=== PATIENT | female | born 1970 | race African-American/Black ===

== ENCOUNTER 2016-05-30 13:08 | Emergency (ER) ==
--- NOTE | 2016-05-30 14:01 | PROVIDER DOCUMENTATION ---
HPI-Female /OB/Breast - General Chief Complaint: Female Stated Complaint: N/V/D Time Seen by Provider: 05/30/16 14:01 Source: reports: patient Allergies/Adverse Reactions: Patient Allergies Allergy/AdvReac Type Severity Reaction Status Date / Time No Known Allergies Allergy Verified 04/10/16 06:19 Home Medications: Home Medication List Medication Instructions Recorded Confirmed Last Taken Type Lisinopril 40 mg PO DAILY #30 tablet 12/29/15 04/11/16 04/11/16 Rx Amlodipine [Norvasc] 5 mg PO BID #60 tablet 05/05/16 Unknown Rx LISINOpril [Prinivil] 40 mg PO DAILY #60 tablet 05/05/16 Unknown Rx Sucralfate [Carafate] 1 gm PO AC + HS #120 tablet 05/05/16 Unknown Rx Potassium Chloride [K-Tab ER] 20 meq PO DAILY #5 tablet.er 05/30/16 Unknown Rx Promethazine [Phenergan] 25 mg PO Q6H PRN PRN #15 tablet 05/30/16 Unknown Rx Tramadol [Ultram] 50 mg PO Q6H PRN PRN #12 tablet 05/30/16 Unknown Rx - History of Present Illness-Female /OB Nature of Presenting Problem: PATIENT REPORTS PELVIC PAIN, VAGINAL BLEEDING X6 MONTHS. STATES IS SCHEDULED TO SEE DANCE PROFESSOR, DR. AGARWAL NEXT WEEK TO DISCUSS HYSTERECTOMY. STATES SHE HAS KNOWN FIBROIDS. REPORTS EXTREME NAUSEA AND VOMITING. STATES "I'M ALWAYS ANEMIC AND MY POTASSIUM IS ALWAYS LOW. I THINK I JUST NEED SOME FLUIDS AND SOME POTASSIUM". Does patient report she is ?: No Location of complaint: reports: suprapubic Radiation: reports: none Quality of Pain: reports: aching, cramping, sharp Severity in ED: reports: severe Onset/Duration: reports: other (6 MONTHS AGO) Timing: reports: still present, getting worse Vaginal Symptoms: reports: abnormal bleeding Vaginal Bleeding Amount: Large/Heavy Pads/Day: 15 Urinary Symptoms: reports: no symptoms Related Symptoms: reports: no symptoms Modifying Factors: improves with: nothing Associated Symptoms: reports: fatigue, nausea, vomiting Similar Symptoms Previously?: Yes Recently seen or treated by another doctor?: No - LMP/ History Menstrual Status: abnormal period(s) Review of Systems - Adult - REVIEW OF SYSTEMS - ADULT Constitutional: reports: no symptoms reported Eyes: reports: no symptoms reported Ears, Nose, Mouth & Throat: reports: no symptoms reported Cardiovascular: reports: no symptoms reported Respiratory: reports: no symptoms reported Gastrointestinal: reports: see HPI Genitourinary: reports: see HPI Musculoskeletal: reports: no symptoms reported Integumentary: reports: no symptoms reported Neurological: reports: no symptoms reported Psychiatric: reports: no symptoms reported Endocrine: reports: no symptoms reported Hematologic/Lymphatic: reports: see HPI Allergic/Immunologic: reports: no symptoms reported Past History - Adult - PAST MEDICAL HISTORY-ADULT Review of Records: reports: Nursing Assessment Review, Medications Reviewed, Social history reviewed & non-contributory. Major Childhood Illnesses: reports: denies history Cardiovascular: reports: HTN Respiratory: reports: denies history Gastrointestinal: reports: denies history Obstetrical/Gynecological: reports: fibroids (with AUB), other (tubal ligation) Genitourinary: reports: denies history Musculoskeletal: reports: denies history Neurological: reports: Seizures/Epilepsy Endocrine/Immune: reports: denies history Other Conditions: reports: denies history - PRIOR SURGERIES/PROCEDURES Surgical/Procedure History: reports: BTL - IMMUNIZATION STATUS Childhood Immunizations: See Nurse Assessment Flu Vaccine: See Nurse Assessment - FAMILY HISTORY Family History: reviewed, not pertinent Physical Exam-General - PHYSICAL EXAM-ADULT Initial Vital Signs Reviewed: Yes - CONSTITUTIONAL General Appearance: appears well, alert, no apparent distress - EYES Eyes: PERRL/EOMI - HEAD, EARS, NOSE, MOUTH & THROAT HENMT: normocephalic/atraumatic, normal ENT inspection - NECK Neck: full range of motion - RESPIRATORY Respiratory: lungs clear - CARDIOVASCULAR Cardiovascular: regular rate, rhythm - GASTROINTESTINAL (ABDOMEN) Abdominal Exam: normal bowel sounds, soft, tenderness (SUPRAPUBIC TENDERNESS) - MUSCULOSKELETAL Extremity: normal range of motion, normal gait - SKIN Integumentary: normal color, normal turgor, warm/dry - NEUROLOGIC Neurologic: grossly normal - PSYCHIATRIC Psych/Mental Status: normal mood/affect, normal thought content, normal thought process, oriented x 3 Progress - PLAN OF CARE/RESULTS Progress/Plan/Lab Results: 1622--DISCUSSED PATIENT AND REVIEWED LABS WITH DR. BRADLEY. PER DR. BRADLEY, PATIENT DOES NOT MEET ADMIT CRITERIA AT THIS TIME. Laboratory Tests 05/30/16 05/30/16 05/30/16 14:40 15:00 15:00 WBC 11.70 H RBC 4.11 L Hgb 8.2 L Hct 27.0 L MCV 65.7 L MCH 20.0 L MCHC 30.4 L RDW Std Deviation 21.9 H Plt Count 479 H MPV 8.9 Immature Gran % (Auto) 0.3 Neut % (Auto) 83.3 H Lymph % (Auto) 11.4 L [place] % (Auto) 4.2 Eos % (Auto) 0.5 Baso % (Auto) 0.3 Immature Gran # (Auto) 0.03 Neut # (Auto) 9.76 H Lymph # (Auto) 1.33 [place] # (Auto) 0.49 Eos # (Auto) 0.06 Baso # (Auto) 0.03 APTT (Factor Assay) Sodium 141 Potassium 2.9 L Chloride 102 Carbon Dioxide 25 Anion Gap 14 BUN 5 L Creatinine 0.8 Estimated GFR/1.73 m2 > 60 BUN/Creatinine Ratio 6 Glucose 105 H Calculated Osmolality 279 Calcium 9.5 Total Bilirubin 0.20 AST 14 ALT 10 Alkaline Phosphatase 67 Total Protein 8.0 Albumin 4.0 Globulin 4.0 Albumin/Globulin Ratio 1.0 Urine Source CATH Urine Color YELLOW Urine Clarity CLEAR Urine pH 9.0 Ur Specific [place] 1.010 Urine Protein NEGATIVE Urine Ketones TRACE Urine Blood 4+ Urine Nitrite NEGATIVE Urine Bilirubin NEGATIVE Urine Urobilinogen NORMAL Urine Microscopic RBC 10-20 A Urine WBC TRACE A Urine Microscopic WBC <10 Ur Epithelial Cells <10 Urine Glucose NEGATIVE 05/30/16 15:26 WBC RBC Hgb Hct MCV MCH MCHC RDW Std Deviation Plt Count MPV Immature Gran % (Auto) Neut % (Auto) Lymph % (Auto) [place] % (Auto) Eos % (Auto) Baso % (Auto) Immature Gran # (Auto) Neut # (Auto) Lymph # (Auto) [place] # (Auto) Eos # (Auto) Baso # (Auto) APTT (Factor Assay) 30.3 Sodium Potassium Chloride Carbon Dioxide Anion Gap BUN Creatinine Estimated GFR/1.73 m2 BUN/Creatinine Ratio Glucose Calculated Osmolality Calcium Total Bilirubin AST ALT Alkaline Phosphatase Total Protein Albumin Globulin Albumin/Globulin Ratio Urine Source Urine Color Urine Clarity Urine pH Ur Specific [place] Urine Protein Urine Ketones Urine Blood Urine Nitrite Urine Bilirubin Urine Urobilinogen Urine Microscopic RBC Urine WBC Urine Microscopic WBC Ur Epithelial Cells Urine Glucose Orders Category Date Time Status ED: Urine Bedside ORDERED Care 05/30/16 14:08 Active Saline Loc NOW Care 05/30/16 14:08 Active CBC WITH ELECTRONIC DIFF [HEME] Stat Lab 05/30/16 15:00 Completed CMP [COMPREHENSIVE METABOLIC PANEL] [CHEM] Stat Lab 05/30/16 15:[address]IME WITH INR [address] [COAG] Stat Lab 05/30/16 14:[address] [COAG] Stat Lab 05/30/16 15:[address] [URINALYSIS] Stat Lab 05/30/16 14:40 Completed URINE MICROSCOPIC [URINALYSIS] Stat Lab 05/30/16 14:40 Completed 0.9% Sodium Chloride Inj [Ns] 1,000 ml Med 05/30/16 14:10 Discontinued IV 999 mls/hr Morphine Med 05/30/16 16:26 Discontinued 4 mg IV NOW ONE Ondansetron [Zofran] Med 05/30/16 14:10 Discontinued 4 mg IV NOW ONE Potassium Chloride E.r. [Klor-Con] Med 05/30/16 16:23 Discontinued 40 meq PO NOW ONE Promethazine [Phenergan] Med 05/30/16 16:26 Discontinued 25 mg IV NOW ONE Sodium Chloride 0.9% Med 05/30/16 16:26 Discontinued 10 ml INJ NOW ONE Vital Signs - 24 hr 05/30/16 13:18 Temperature 98 F Pulse Rate 116 H Respiratory 18 Rate Blood Pressure 177/99 O2 Sat by Pulse 99 Oximetry Departure - Departure Time of Disposition Order: 16:29 DIAGNOSIS: Vaginal bleeding, abnormal Nausea & vomiting Qualifiers: Vomiting type: unspecified Anemia Qualifiers: Anemia type: other cause Disposition: HOME 01 Certified Medical Emergency: Emergent Condition: Good Prescriptions: Potassium Chloride [K-Tab ER] 20 meq PO DAILY #5 tablet.er Promethazine [Phenergan] 25 mg PO Q6H PRN PRN #15 tablet PRN Reason: Nausea Tramadol [Ultram] 50 mg PO Q6H PRN PRN #12 tablet PRN Reason: Pain Referrals: Austin Agarwal MD [STAFF PHYSICIAN] - (KEEP YOUR APPOINTMENT WITH DR. AGARWAL FOR NEXT WEEK. ) Forms: Return to School/Parent Work Instructions: Citric Acid; Potassium Citrate Oral Solution, Anemia, Nonspecific , Tramadol tablets, Promethazine tablets, Nausea and Vomiting
[2016-05-30] MEDS ORDERED: ZOFRAN IV ONE (14:10)
[2016-05-30] MEDS ORDERED: NS 1,000 ML IV ONE (14:10)
[2016-05-30 15:05] LABS: URINE SOURCE CATH
[2016-05-30 15:20] LABS: MANUAL DIFF NEEDED? NO
[2016-05-30 15:24] LABS: BASO% 0.3 % (0.0-0.8); EOS# 0.06 X1000 (0.0-0.7); EOS% 0.5 % (0.0-10.0); HEMOGLOBIN 8.2 g/dL (12.0-16.0); IMM GRAN# 0.03 X1000 (0.0-0.04); IMM GRAN% 0.3 % (0.0-0.5); LYMPH# 1.33 X1000 (1.2-3.4); LYMPH% 11.4 % (20.5-51.1); MCHC 30.4 g/dL (33-37); MCV 65.7 FL (81-99); MONO# 0.49 X1000 (0.11-0.59); MONO% 4.2 % (1.7-9.3); MPV 8.9 FL (7.4-10.4); NEUT% 83.3 % (42.2-75.2); PLT 479 X1000 (130-400); RBC 4.11 XMIL (4.2-5.4)
[2016-05-30 15:37] LABS: BILIRUBIN URINE NEGATIVE (NEGATIVE); BLOOD URINE 4+ (NEGATIVE); CLARITY CLEAR (CLEAR); COLOR YELLOW; GLUCOSE URINE NEGATIVE (NEGATIVE); LEUKOCYTES URINE TRACE (NEGATIVE); NITRITE URINE NEGATIVE (NEGATIVE); PROTEIN URINE NEGATIVE (NEGATIVE); URINE MICROSCOPIC NEEDED? YES; UROBILINOGEN URINE NORMAL
[2016-05-30 15:41] LABS: URINE EPITHELIAL CELLS <10 /HPF (<10); URINE WBC <10 /HPF (<10)
[2016-05-30 15:56] LABS: AGAP 14; ALKALINE PHOSPHATASE 67 U/L (32-104); BUN 5 mg/dL (8-22); CALCIUM 9.5 mg/dL (8.8-10.2); CHLORIDE 102 mmol/L (98-107); COSMO 279; GOT 14 U/L (10-30); GPT 10 U/L (10-36); POTASSIUM 2.9 mmol/L (3.5-5.1); SODIUM 141 mmol/L (136-145); TCO2 25 mmol/L (25-35)
[2016-05-30] MEDS ORDERED: KLOR-CON PO ONE (16:23)
[2016-05-30] MEDS ORDERED: MORPHINE IV ONE (16:26)
[2016-05-30] MEDS ORDERED: PHENERGAN IV ONE (16:26)
[2016-05-30] MEDS ORDERED: SODIUM CHLORIDE 0.9% INJ ONE (16:26)
[2016-05-30] MEDS ORDERED: PHENERGAN IM ONE (16:39)
[2016-05-30 17:40] VITALS: BP 154/88
== END 2016-05-30 17:34 | disposition home or self-care (01) ==
LOC: P.ED 13:08
DX: D64.9 Anemia, unspecified (principal); N93.9 Abnormal uterine and vaginal bleeding, unspecified; R11.2 Nausea with vomiting, unspecified; R10.2 Pelvic and perineal pain; R53.83 Other fatigue; R10.819 Abdominal tenderness, unspecified site; I10 Essential (primary) hypertension; Z79.899 Other long term (current) drug therapy
CPT/HCPCS: 36415; 80053; 81001; 85025; 85730; J2270; J2405; J2550; J7030

== ENCOUNTER 2016-06-03 08:49 | Emergency (ER) ==
[2016-06-03 10:28] LABS: URINE CULTURE NEEDED? NO; URINE MICRO REVIEW NEEDED? NO; URINE SOURCE CLEAN CATCH
[2016-06-03] MEDS ORDERED: BENTYL IM ONE (10:31)
[2016-06-03] MEDS ORDERED: ZOFRAN IV ONE (10:31)
[2016-06-03] MEDS ORDERED: NS 1,000 ML IV ONE (10:31)
[2016-06-03 10:33] LABS: BILIRUBIN URINE NEGATIVE (NEGATIVE); BLOOD URINE MODERATE (NEGATIVE); COLOR ORANGE; GLUCOSE URINE NEGATIVE (NEGATIVE); LEUKOCYTES URINE NEGATIVE (NEGATIVE); NITRITE URINE NEGATIVE (NEGATIVE); PH URINE 7.5; PROTEIN URINE 30 mg/dL (NEGATIVE); SP GRAVITY URINE 1.007; TURBIDITY URINE HAZY (CLEAR); UROBILINOGEN URINE NORMAL (NORMAL)
[2016-06-03 10:34] LABS: UR EPITHELIAL CELLS <10 /HPF (<10); URINE BACTERIA NEGATIVE /HPF; URINE RBC TNTC /HPF (<10); URINE WBC <10 /HPF (<10)
--- NOTE | 2016-06-03 10:37 | PROVIDER DOCUMENTATION ---
HPI-Abdominal Pain/GI Problem - General Chief Complaint: N/V/D Stated Complaint: N/V/D Time Seen by Provider: 06/03/16 10:30 Allergies/Adverse Reactions: Patient Allergies Allergy/AdvReac Type Severity Reaction Status Date / Time No Known Allergies Allergy Verified 04/10/16 06:19 Home Medications: Home Medication List Medication Instructions Recorded Confirmed Last Taken Type Amlodipine [Norvasc] 5 mg PO BID #60 tablet 05/05/16 06/03/16 06/03/16 Rx Potassium Chloride [K-Tab ER] 20 meq PO DAILY #5 tablet.er 05/30/16 06/03/1602/09 Rx Cephalexin [Keflex] 500 mg PO BID #14 capsule 06/03/16 Unknown Rx - History of Present Illness-ABD Nature of Presenting Problems: A 46 y/o F with PMH of DUB was currently being evalauted by OBGYN for hysterectomy presented to ED with complains of n/v/ and few episodes of non bloody diarrhea since 3-4 days, tried OTC medications with no help, noted supra pubic discomfort and noted increased urinary frequency, denies fevers/marroquin/cp/sob Abdominal Pain Onset Location: reports: suprapubic Pain Radiation: reports: no radiation Quality of Pain: reports: cramping Severity in ED: reports: mild Onset/Duration: reports: 3 days ago Timing: reports: still present Activities at Onset: reports: none Exposure to sick contacts?: No Modifying Factors: improves with: nothing Associated Symptoms: reports: diarrhea, nausea, vomiting Last BM: this morning Dark Stools Present?: reports: none noticed Rectal Bleeding: reports: none Emesis Description: reports: none Bruising or Bleeding Gums?: No Similar Symptoms Previously?: No Recently seen or treated by another doctor?: Yes Review of Systems - Adult - REVIEW OF SYSTEMS - ADULT Constitutional: reports: no symptoms reported Eyes: reports: no symptoms reported Ears, Nose, Mouth & Throat: reports: no symptoms reported Cardiovascular: reports: no symptoms reported Respiratory: reports: no symptoms reported Gastrointestinal: reports: see HPI Genitourinary: reports: no symptoms reported Musculoskeletal: reports: no symptoms reported Integumentary: reports: no symptoms reported Neurological: reports: no symptoms reported Psychiatric: reports: no symptoms reported Endocrine: reports: no symptoms reported Hematologic/Lymphatic: reports: no symptoms reported Allergic/Immunologic: reports: no symptoms reported All Other Systems: Reviewed and Negative Past History - Adult - PAST MEDICAL HISTORY-ADULT Review of Records: reports: Old Records Reviewed, Nursing Assessment Review, Medications Reviewed, Social history reviewed & non-contributory. Major Childhood Illnesses: reports: denies history Cardiovascular: reports: HTN Respiratory: reports: denies history Gastrointestinal: reports: denies history Obstetrical/Gynecological: reports: fibroids (with AUB), other (tubal ligation) Genitourinary: reports: denies history Musculoskeletal: reports: denies history Neurological: reports: Seizures/Epilepsy Endocrine/Immune: reports: denies history Other Conditions: reports: denies history - PRIOR SURGERIES/PROCEDURES Surgical/Procedure History: reports: BTL - IMMUNIZATION STATUS Childhood Immunizations: See Nurse Assessment Flu Vaccine: See Nurse Assessment - FAMILY HISTORY Family History: reviewed, not pertinent Physical Exam-General - PHYSICAL EXAM-ADULT Initial Vital Signs Reviewed: Yes - CONSTITUTIONAL General Appearance: appears well, alert, no apparent distress - EYES Eyes: PERRL/EOMI, pink conjunctivae - HEAD, EARS, NOSE, MOUTH & THROAT HENMT: normocephalic/atraumatic, moist mucous membranes, normal ENT inspection, TMs normal - NECK Neck: non-tender, full range of motion - RESPIRATORY Respiratory: chest non-tender, lungs clear, normal breath sounds, no pleuratic chest pain, no respiratory distress - CARDIOVASCULAR Cardiovascular: normal peripheral pulses, regular rate, rhythm, no edema, no gallop, no JVD, no murmur - GASTROINTESTINAL (ABDOMEN) Abdominal Exam: normal bowel sounds, soft, tenderness (suprqapubic tenderness). negative: distended, guarding, rigid, rebound, hepatomegaly, spleenomegaly, McBurney's point tenderness, Brunson's sign, obturator sign, psoas, Rovsing's sign - GENITOURINARY Female Genitalia/Pelvic Exam: deferred - MUSCULOSKELETAL Back Exam: normal inspection, no CVA tenderness Extremity: normal range of motion, non-tender, normal gait - SKIN Integumentary: normal color, normal turgor - NEUROLOGIC Neurologic: blueprint blocker II-XII nml as tested, grossly normal, no motor/sensory deficits - PSYCHIATRIC Psych/Mental Status: normal mood/affect Progress - PLAN OF CARE/RESULTS Progress/Plan/Lab Results: Laboratory Tests 0306/03/16 06/03/16 10:00 10:00 10:32 WBC RBC Hgb Hct MCV MCH MCHC RDW Std Deviation Plt Count MPV Immature Gran % (Auto) Neut % (Auto) Lymph % (Auto) [place] % (Auto) Eos % (Auto) Baso % (Auto) Immature Gran # (Auto) Neut # (Auto) Lymph # (Auto) [place] # (Auto) Eos # (Auto) Baso # (Auto) Sodium 140 Potassium 2.9 L Chloride 98 Carbon Dioxide 26 Anion Gap 16 BUN 9 Creatinine 0.9 Estimated GFR/1.73 m2 > 60 BUN/Creatinine Ratio 10 Glucose 115 H Calculated Osmolality 279 Calcium 10.1 Total Bilirubin 0.18 L AST 10 ALT 10 Alkaline Phosphatase 67 Total Protein 8.1 Albumin 3.9 Globulin 4.2 Albumin/Globulin Ratio 0.9 Amylase 195 Lipase 54 Urine Source CLEAN CATCH Urine Color ORANGE Urine Turbidity HAZY Urine pH 7.5 Ur Specific [place] 1.007 Urine Protein 30 A Ur Glucose (Stick) NEGATIVE Ur Ketones (Stick) NEGATIVE Urine Blood MODERATE A Urine Nitrite NEGATIVE Urine Bilirubin NEGATIVE Urobilinogen Dipstick NORMAL Urine Leukocytes NEGATIVE Urine WBC (Auto) <10 Urine RBC (Auto) TNTC A U Epithel Cells (Auto) <10 Urine Bacteria (Auto) NEGATIVE Urine Test NEGATIVE 06/03/16 10:32 WBC 12.40 H RBC 4.35 Hgb 8.9 L Hct 28.7 L MCV 66.0 L MCH 20.5 L MCHC 31.0 L RDW Std Deviation 22.6 H Plt Count 507 H MPV 9.6 Immature Gran % (Auto) 0.4 Neut % (Auto) 75.2 Lymph % (Auto) 18.1 L [place] % (Auto) 4.8 Eos % (Auto) 1.0 Baso % (Auto) 0.5 Immature Gran # (Auto) 0.05 H Neut # (Auto) 9.33 H Lymph # (Auto) 2.24 [place] # (Auto) 0.59 Eos # (Auto) 0.13 Baso # (Auto) 0.06 Sodium Potassium Chloride Carbon Dioxide Anion Gap BUN Creatinine Estimated GFR/1.73 m2 BUN/Creatinine Ratio Glucose Calculated Osmolality Calcium Total Bilirubin AST ALT Alkaline Phosphatase Total Protein Albumin Globulin Albumin/Globulin Ratio Amylase Lipase Urine Source Urine Color Urine Turbidity Urine pH Ur Specific [place] Urine Protein Ur Glucose (Stick) Ur Ketones (Stick) Urine Blood Urine Nitrite Urine Bilirubin Urobilinogen Dipstick Urine Leukocytes Urine WBC (Auto) Urine RBC (Auto) U Epithel Cells (Auto) Urine Bacteria (Auto) Urine Test Orders Category Date Time Status ED: Urine Bedside ORDERED Care 06/03/16 10:31 Inactive AMYLASE [CHEM] Stat Lab 06/03/16 10:32 Completed CBC WITH ELECTRONIC DIFF [HEME] Stat Lab 06/03/16 10:32 Completed COMPREHENSIVE METABOLIC PANEL [CHEM] Stat Lab 06/03/16 10:32 Completed LIPASE [CHEM] Stat Lab 06/03/16 10:32 Completed TEST-URINE [PREG] Stat Lab 06/03/16 10:00 Completed URINALYSIS W/POSS RFLX CULT [URINALYSIS] Stat Lab 06/03/16 10:00 Completed 0.9% Sodium Chloride Inj [Ns] 1,000 ml Med 06/03/16 10:31 Discontinued IV 999 mls/hr Dicyclomine [Bentyl] Med 06/03/16 10:31 Discontinued 20 mg IM NOW ONE Ondansetron [Zofran] Med 06/03/16 10:31 Discontinued 4 mg IV NOW ONE Potassium Chloride 20% Liquid Med 06/03/16 11:16 Discontinued 40 meq PO NOW ONE Vital Signs Temp Pulse Resp BP Pulse Ox 06/03/16 08:57 98.2 F 100 H 20 138/93 100 No Known Allergies Allergy (Verified 04/10/16 06:19) Amlodipine [Norvasc] 5 mg PO BID #60 tablet 05/05/16 Potassium Chloride [K-Tab ER] 20 meq PO DAILY #5 tablet.er 05/30/16 Laboratory 06/03/16 06/03/16 06/03/16 10:32 10:32 10:00 WBC 12.40 H RBC 4.35 Hgb 8.9 L Hct 28.7 L MCV 66.0 L MCH 20.5 L MCHC 31.0 L RDW Std Deviation 22.6 H Plt Count 507 H MPV 9.6 Immature Gran % (Auto) 0.4 Neut % (Auto) 75.2 Lymph % (Auto) 18.1 L [place] % (Auto) 4.8 Eos % (Auto) 1.0 Baso % (Auto) 0.5 Immature Gran # (Auto) 0.05 H Neut # (Auto) 9.33 H Lymph # (Auto) 2.24 [place] # (Auto) 0.59 Eos # (Auto) 0.13 Baso # (Auto) 0.06 Sodium 140 Potassium 2.9 L Chloride 98 Carbon Dioxide 26 Anion Gap 16 BUN 9 Creatinine 0.9 Estimated GFR/1.73 m2 > 60 BUN/Creatinine Ratio 10 Glucose 115 H Calculated Osmolality 279 Calcium 10.1 Total Bilirubin 0.18 L AST 10 ALT 10 Alkaline Phosphatase 67 Total Protein 8.1 Albumin 3.9 Globulin 4.2 Albumin/Globulin Ratio 0.9 Amylase 195 Lipase 54 Urine Source Urine Color Urine Turbidity Urine pH Ur Specific [place] Urine Protein Ur Glucose (Stick) Ur Ketones (Stick) Urine Blood Urine Nitrite Urine Bilirubin Urobilinogen Dipstick Urine Leukocytes Urine WBC (Auto) Urine RBC (Auto) U Epithel Cells (Auto) Urine Bacteria (Auto) Urine Test NEGATIVE 06/03/16 10:00 WBC RBC Hgb Hct MCV MCH MCHC RDW Std Deviation Plt Count MPV Immature Gran % (Auto) Neut % (Auto) Lymph % (Auto) [place] % (Auto) Eos % (Auto) Baso % (Auto) Immature Gran # (Auto) Neut # (Auto) Lymph # (Auto) [place] # (Auto) Eos # (Auto) Baso # (Auto) Sodium Potassium Chloride Carbon Dioxide Anion Gap BUN Creatinine Estimated GFR/1.73 m2 BUN/Creatinine Ratio Glucose Calculated Osmolality Calcium Total Bilirubin AST ALT Alkaline Phosphatase Total Protein Albumin Globulin Albumin/Globulin Ratio Amylase Lipase Urine Source CLEAN CATCH Urine Color ORANGE Urine Turbidity HAZY Urine pH 7.5 Ur Specific [place] 1.007 Urine Protein 30 A Ur Glucose (Stick) NEGATIVE Ur Ketones (Stick) NEGATIVE Urine Blood MODERATE A Urine Nitrite NEGATIVE Urine Bilirubin NEGATIVE Urobilinogen Dipstick NORMAL Urine Leukocytes NEGATIVE Urine WBC (Auto) <10 Urine RBC (Auto) TNTC A U Epithel Cells (Auto) <10 Urine Bacteria (Auto) NEGATIVE Urine Test - REASSESSMENT Reassessment #1 Time Reassessed: 12:16 Status: improving Departure - Departure Time of Disposition Order: 12:16 DIAGNOSIS: Hypokalemia, DUB (dysfunctional uterine bleeding), Gastroenteritis Anemia Qualifiers: Anemia type: unspecified type Qualified Code(s): D64.9 - Anemia, unspecified UTI (urinary tract infection) Qualifiers: Urinary tract infection type: site unspecified Hematuria presence: with hematuria Qualified Code(s): N39.0 - Urinary tract infection, site not specified ; R31.9 - Hematuria, unspecified Disposition: HOME 01 Certified Medical Emergency: Emergent Condition: Good Prescriptions: Cephalexin [Keflex] 500 mg PO BID #14 capsule - Critical Care Note Comments: A 46 y/o who presented with multitude of symptoms, has DUB has pending appt with OBGYN for hysterectomy evalaution HB low 8.9 not symptomatic no cardiac history no need of transfusion, hypokalemia given supplement, as per pt always runs low and 2.9 is normal for her, viral gastroenteritis improved after Rx, UTI symptoms will treat with keflex to have close follow up with PCP in 1-2 days , PO hydration
[2016-06-03 10:48] LABS: BASO% 0.5 % (0.0-0.8); EOS# 0.13 X1000 (0.0-0.7); HEMATOCRIT 28.7 % (37.0-47.0); HEMOGLOBIN 8.9 g/dL (12.0-16.0); IMM GRAN# 0.05 X1000 (0.0-0.04); IMM GRAN% 0.4 % (0.0-0.5); LYMPH# 2.24 X1000 (1.2-3.4); LYMPH% 18.1 % (20.5-51.1); MANUAL DIFF NEEDED? NO; MCH 20.5 PG (27-31); MONO# 0.59 X1000 (0.11-0.59); MONO% 4.8 % (1.7-9.3); MPV 9.6 FL (7.4-10.4); NEUT% 75.2 % (42.2-75.2); PLT 507 X1000 (130-400); RBC 4.35 XMIL (4.2-5.4)
[2016-06-03 11:03] LABS: AGAP 16; ALBUMIN 3.9 g/dL (3.5-5.0); ALKALINE PHOSPHATASE 67 U/L (32-104); AMYLASE 195 U/L (20-200); BUN 9 mg/dL (8-22); CALCIUM 10.1 mg/dL (8.8-10.2); CHLORIDE 98 mmol/L (98-107); COSMO 279; GOT 10 U/L (10-30); GPT 10 U/L (10-36); LIPASE 54 U/L (13-60); POTASSIUM 2.9 mmol/L (3.5-5.1); SODIUM 140 mmol/L (136-145); TCO2 26 mmol/L (25-35); TOTAL BILIRUBIN 0.18 mg/dL (0.20-1.00); TOTAL PROTEIN 8.1 g/dL (6.3-8.3)
[2016-06-03] MEDS ORDERED: POTASSIUM CHLORIDE 20% LIQUID PO ONE (11:16)
[2016-06-03 14:08] VITALS: BP 132/89
== END 2016-06-03 14:07 | disposition home or self-care (01) ==
LOC: ED 08:49
DX: K52.9 Noninfective gastroenteritis and colitis, unspecified (principal); N39.0 Urinary tract infection, site not specified; E87.6 Hypokalemia; N93.8 Other specified abnormal uterine and vaginal bleeding; D64.9 Anemia, unspecified; R11.2 Nausea with vomiting, unspecified; R19.7 Diarrhea, unspecified; R10.9 Unspecified abdominal pain; R35.0 Frequency of micturition; R10.819 Abdominal tenderness, unspecified site; I10 Essential (primary) hypertension; Z79.899 Other long term (current) drug therapy
CPT/HCPCS: 36415; 80053; 81001; 81025; 82150; 83690; 85025; 96372; 96374; J0500; J2405; J7030

== ENCOUNTER 2016-06-04 05:10 | Emergency (ER) ==
--- NOTE | 2016-06-04 05:19 | PROVIDER DOCUMENTATION ---
HPI-Abdominal Pain/GI Problem <Skinny Mcknight - Last Filed: 06/04/16 05:19> - History of Present Illness-ABD Nature of Presenting Problems: A 46 y/o F with PMH of DUB was currently being evalauted by OBGYN for hysterectomy presented to ED with complains of n/v/ and few episodes of non bloody diarrhea since 3-4 days, tried OTC medications with no help, noted supra pubic discomfort and noted increased urinary frequency, denies fevers/marroquin/cp/ sob. Pt was seen at [facility] yesterday for exactly these symptoms. Abdominal Pain Onset Location: reports: generalized abdomen Pain Radiation: reports: no radiation Quality of Pain: reports: aching Severity in ED: reports: mild Onset/Duration: reports: 4 days ago Timing: reports: still present Activities at Onset: reports: none Exposure to sick contacts?: No Associated Symptoms: reports: diarrhea, nausea, vomiting Last BM: this morning Dark Stools Present?: reports: none noticed <Soraya Zamudio - Last Filed: 06/04/16 15:34> <Edgar Baird - Last Filed: 06/04/16 15:45> - General Chief Complaint: N/V/D Stated Complaint: V,D,N Time Seen by Provider: 06/04/16 05:18 Allergies/Adverse Reactions: Patient Allergies Allergy/AdvReac Type Severity Reaction Status Date / Time No Known Allergies Allergy Verified 06/04/16 05:23 Home Medications: Home Medication List Medication Instructions Recorded Confirmed Last Taken Type Amlodipine [Norvasc] 5 mg PO BID #60 tablet 05/05/16 06/03/16 06/03/16 Rx Potassium Chloride [K-Tab ER] 20 meq PO DAILY #5 tablet.er 05/30/16 06/03/1602/09 Rx Cephalexin [Keflex] 500 mg PO BID #14 capsule 06/03/16 1 Day Ago Rx Acetaminophen with Codeine 1 each PO Q6H PRN PRN #20 tablet 06/04/16 Unknown Rx [Tylenol with Codeine #3 Tablet] Diphenoxylate/Atropine [Lomotil] 1 each PO 4XDAY PRN PRN #20 tablet 06/04/16 Unknown Rx Ondansetron Odt [Zofran 4 mg Odt] 4 mg PO Q6H PRN PRN #20 tablet 06/04/16 Unknown Rx Potassium Chloride [K-Tab ER] 20 meq PO BID #30 tablet.er 06/04/16 Unknown Rx Promethazine [Phenergan] 1 - 2 tab PO Q6H PRN PRN #18 tablet 06/04/16 Unknown Rx Review of Systems - Adult - REVIEW OF SYSTEMS - ADULT Constitutional: reports: no symptoms reported. denies: chills, fever Eyes: reports: no symptoms reported. denies: blurred vision, double vision Ears, Nose, Mouth & Throat: reports: no symptoms reported. denies: ear discharge, epistaxis Cardiovascular: reports: no symptoms reported. denies: chest pain, heart murmur Respiratory: reports: no symptoms reported. denies: chronic cough, hemoptysis Gastrointestinal: reports: abdominal pain, diarrhea, nausea, vomiting Genitourinary: reports: no symptoms reported. denies: dysuria, hematuria Musculoskeletal: reports: no symptoms reported. denies: bone pain, joint swelling Integumentary: reports: no symptoms reported. denies: hives, mole changes Neurological: reports: no symptoms reported. denies: numbness, paresthesia Psychiatric: reports: no symptoms reported. denies: anxiety, depression Endocrine: reports: no symptoms reported. denies: cold intolerance, heat intolerance Hematologic/Lymphatic: reports: no symptoms reported. denies: blood clots, lymphedema Allergic/Immunologic: reports: no symptoms reported. denies: allergic reactions , food allergy All Other Systems: Reviewed and Negative <Soraya Zamudio - Last Filed: 06/04/16 15:34> Past History - Adult - PAST MEDICAL HISTORY-ADULT Major Childhood Illnesses: reports: denies history Cardiovascular: reports: HTN Respiratory: reports: denies history Gastrointestinal: reports: denies history Obstetrical/Gynecological: reports: fibroids (with AUB), other (tubal ligation) Genitourinary: reports: denies history Musculoskeletal: reports: denies history Neurological: reports: Seizures/Epilepsy Endocrine/Immune: reports: denies history Other Conditions: reports: denies history - PRIOR SURGERIES/PROCEDURES Surgical/Procedure History: reports: BTL - IMMUNIZATION STATUS Childhood Immunizations: See Nurse Assessment Flu Vaccine: See Nurse Assessment - FAMILY HISTORY Family History: reviewed, not pertinent <Skinny Mcknight - Last Filed: 06/04/16 05:19> - PAST MEDICAL HISTORY-ADULT Review of Records: reports: Old Records Reviewed, Nursing Assessment Review, Medications Reviewed - IMMUNIZATION STATUS Childhood Immunizations: See Nurse Assessment Flu Vaccine: See Nurse Assessment <Soraya Zamudio - Last Filed: 06/04/16 15:34> Physical Exam-General - PHYSICAL EXAM-ADULT Initial Vital Signs Reviewed: Yes - CONSTITUTIONAL General Appearance: appears well, alert, no apparent distress - EYES Eyes: PERRL/EOMI, pink conjunctivae - HEAD, EARS, NOSE, MOUTH & THROAT HENMT: normocephalic/atraumatic, moist mucous membranes - NECK Neck: non-tender, full range of motion, supple - RESPIRATORY Respiratory: chest non-tender, lungs clear, normal breath sounds - CARDIOVASCULAR Cardiovascular: normal peripheral pulses, regular rate, rhythm, no edema - GASTROINTESTINAL (ABDOMEN) Abdominal Exam: normal bowel sounds, non tender, soft - GENITOURINARY Female Genitalia/Pelvic Exam: deferred - LYMPHATIC Lymphatic: no adenopathy - MUSCULOSKELETAL Back Exam: normal inspection, no CVA tenderness, no vertebral tenderness Extremity: normal range of motion, non-tender, normal gait - SKIN Integumentary: normal color, normal turgor, warm/dry - NEUROLOGIC Neurologic: grossly normal, no motor/sensory deficits - PSYCHIATRIC Psych/Mental Status: normal mood/affect, normal thought content, normal thought process, oriented x 3 <Soraya Zamudio - Last Filed: 06/04/16 15:34> Progress - PLAN OF CARE/RESULTS Progress/Plan/Lab Results: Vital Signs - 24 hr 06/04/16 06/04/16 06/04/16 05:18 08:13 08:15 Temperature 98.8 F Pulse Rate 109 H Pulse Rate [ Sitting] Pulse Rate [ Standing] Pulse Rate [ Supine] Respiratory 16 Rate Blood Pressure 184/103 212/117 201/115 Blood Pressure [Sitting] Blood Pressure [Standing] Blood Pressure [Supine] O2 Sat by Pulse 98 Oximetry 06/04/16 06/04/16 06/04/16 08:24 08:30 08:45 Temperature Pulse Rate Pulse Rate [ Sitting] Pulse Rate [ Standing] Pulse Rate [ Supine] Respiratory Rate Blood Pressure 210/115 187/103 192/110 Blood Pressure [Sitting] Blood Pressure [Standing] Blood Pressure [Supine] O2 Sat by Pulse Oximetry 06/04/16 06/04/16 06/04/16 08:52 09:00 09:16 Temperature 98.6 F Pulse Rate 101 H Pulse Rate [ 121 H Sitting] Pulse Rate [ 135 H Standing] Pulse Rate [ 116 H Supine] Respiratory 18 Rate Blood Pressure 186/102 191/114 Blood Pressure 222/120 [Sitting] Blood Pressure 196/121 [Standing] Blood Pressure 199/120 [Supine] O2 Sat by Pulse 99 Oximetry 06/04/16 06/04/16 06/04/16 09:23 11:55 12:53 Temperature Pulse Rate 85 73 Pulse Rate [ Sitting] Pulse Rate [ Standing] Pulse Rate [ Supine] Respiratory 19 17 Rate Blood Pressure 163/110 167/106 186/105 Blood Pressure [Sitting] Blood Pressure [Standing] Blood Pressure [Supine] O2 Sat by Pulse 99 98 Oximetry 06/04/16 06/04/16 06/04/16 13:09 13:11 14:31 Temperature Pulse Rate 81 86 Pulse Rate [ Sitting] Pulse Rate [ Standing] Pulse Rate [ Supine] Respiratory 18 Rate Blood Pressure 174/119 180/103 174/106 Blood Pressure [Sitting] Blood Pressure [Standing] Blood Pressure [Supine] O2 Sat by Pulse 99 Oximetry 06/04/16 14:59 Temperature Pulse Rate Pulse Rate [ Sitting] Pulse Rate [ Standing] Pulse Rate [ Supine] Respiratory Rate Blood Pressure 169/087 Blood Pressure [Sitting] Blood Pressure [Standing] Blood Pressure [Supine] O2 Sat by Pulse Oximetry Vital Signs - 24 hr 06/04/16 06/04/16 06/04/16 05:18 08:13 08:15 Temperature 98.8 F Pulse Rate 109 H Pulse Rate [ Sitting] Pulse Rate [ Standing] Pulse Rate [ Supine] Respiratory 16 Rate Blood Pressure 184/103 212/117 201/115 Blood Pressure [Sitting] Blood Pressure [Standing] Blood Pressure [Supine] O2 Sat by Pulse 98 Oximetry 06/04/16 06/04/16 06/04/16 08:24 08:30 08:45 Temperature Pulse Rate Pulse Rate [ Sitting] Pulse Rate [ Standing] Pulse Rate [ Supine] Respiratory Rate Blood Pressure 210/115 187/103 192/110 Blood Pressure [Sitting] Blood Pressure [Standing] Blood Pressure [Supine] O2 Sat by Pulse Oximetry 06/04/16 06/04/16 06/04/16 08:52 09:00 09:16 Temperature 98.6 F Pulse Rate 101 H Pulse Rate [ 121 H Sitting] Pulse Rate [ 135 H Standing] Pulse Rate [ 116 H Supine] Respiratory 18 Rate Blood Pressure 186/102 191/114 Blood Pressure 222/120 [Sitting] Blood Pressure 196/121 [Standing] Blood Pressure 199/120 [Supine] O2 Sat by Pulse 99 Oximetry 06/04/16 06/04/16 06/04/16 09:23 11:55 12:53 Temperature Pulse Rate 85 73 Pulse Rate [ Sitting] Pulse Rate [ Standing] Pulse Rate [ Supine] Respiratory 19 17 Rate Blood Pressure 163/110 167/106 186/105 Blood Pressure [Sitting] Blood Pressure [Standing] Blood Pressure [Supine] O2 Sat by Pulse 99 98 Oximetry 06/04/16 06/04/16 06/04/16 13:09 13:11 14:31 Temperature Pulse Rate 81 86 Pulse Rate [ Sitting] Pulse Rate [ Standing] Pulse Rate [ Supine] Respiratory 18 Rate Blood Pressure 174/119 180/103 174/106 Blood Pressure [Sitting] Blood Pressure [Standing] Blood Pressure [Supine] O2 Sat by Pulse 99 Oximetry 06/04/16 14:59 Temperature Pulse Rate Pulse Rate [ Sitting] Pulse Rate [ Standing] Pulse Rate [ Supine] Respiratory Rate Blood Pressure 169/087 Blood Pressure [Sitting] Blood Pressure [Standing] Blood Pressure [Supine] O2 Sat by Pulse Oximetry Orders Category Date Time Status Saline Loc DIRECTED Care 06/04/16 05:19 Active NPO Diet 06/04/16 05:[address] ABD/PELVIS W/ IV CONT ONLY [CT] Stat Exams 06/04/16 05:24 Completed AMYLASE [CHEM] Stat Lab 06/04/16 05:40 Completed CBC WITH ELECTRONIC DIFF [HEME] Stat Lab 06/04/16 05:40 Completed CMP [COMPREHENSIVE METABOLIC PANEL] [CHEM] Stat Lab 06/04/16 13:20 Completed COMPREHENSIVE METABOLIC PANEL [CHEM] Stat Lab 06/04/16 05:40 Completed LIPASE [CHEM] Stat Lab 06/04/16 05:40 Completed MAGNESIUM [CHEM] Stat Lab 06/04/16 13:[address] W/POSS RFLX CULT [URINALYSIS] Stat Lab 06/04/16 06:55 Completed 0.9% Sodium Chloride Inj [Ns] 1,000 ml Med 06/04/16 05:32 Discontinued .ROUTE As Directed 0.9% Sodium Chloride Inj [Ns] 1,000 ml Med 06/04/16 05:34 Discontinued IV 999 mls/hr 0.9% Sodium Chloride Inj [Ns] 1,000 ml Med 06/04/16 07:31 Discontinued IV 999 mls/hr Amlodipine [Norvasc] Med 06/04/16 14:33 Discontinued 10 mg PO NOW ONE Clonidine [Catapres] Med 06/04/16 09:28 Discontinued 0.2 mg .ROUTE .STK-MED ONE Clonidine [Catapres] Med 06/04/16 09:29 Discontinued 0.2 mg PO NOW ONE Labetalol Med 06/04/16 10:40 Discontinued 20 mg IV NOW ONE Labetalol Med 06/04/16 11:41 Discontinued 20 mg IV NOW ONE Labetalol Med 06/04/16 12:55 Discontinued 20 mg IV NOW ONE Labetalol Med 06/04/16 14:33 Discontinued 20 mg IV NOW ONE Ondansetron [Zofran] Med 06/04/16 10:50 Discontinued 4 mg .ROUTE .STK-MED ONE Ondansetron [Zofran] Med 06/04/16 07:33 Discontinued 4 mg IV NOW ONE Ondansetron [Zofran] Med 06/04/16 10:50 Discontinued 4 mg IV NOW ONE Potassium Chloride E.r. [Klor-Con] Med 06/04/16 07:32 Discontinued 20 meq PO NOW ONE Potassium Chloride E.r. [Klor-Con] Med 06/04/16 11:41 Discontinued 20 meq PO NOW ONE Potassium Chloride E.r. [Klor-Con] Med 06/04/16 09:29 Discontinued 40 meq PO NOW ONE Promethazine [Phenergan] Med 06/04/16 06:25 Discontinued 25 mg .ROUTE .STK-MED ONE Promethazine [Phenergan] Med 06/04/16 06:24 Discontinued 25 mg IV NOW ONE Laboratory Tests 06/04/16 06/04/16 06/04/16 05:40 05:40 06:55 WBC 14.53 H RBC 4.36 Hgb 8.8 L Hct 28.3 L MCV 64.9 L MCH 20.2 L MCHC 31.1 L RDW Std Deviation 22.8 H Plt Count 502 H MPV 9.2 Immature Gran % (Auto) 0.2 Neut % (Auto) 86.6 H Lymph % (Auto) 9.6 L [place] % (Auto) 3.4 Eos % (Auto) 0.0 Baso % (Auto) 0.2 Immature Gran # (Auto) 0.03 Neut # (Auto) 12.59 H Lymph # (Auto) 1.39 [place] # (Auto) 0.49 Eos # (Auto) 0.00 Baso # (Auto) 0.03 Segmented Neutrophils Not Reportable Sodium 139 Potassium 2.7 L Chloride 96 L Carbon Dioxide 25 Anion Gap 18 BUN 8 Creatinine 0.7 Estimated GFR/1.73 m2 > 60 BUN/Creatinine Ratio 11 Glucose 172 H Calculated Osmolality 280 Calcium 10.2 Magnesium Total Bilirubin 0.30 AST 15 ALT 12 Alkaline Phosphatase 72 Total Protein 9.1 H Albumin 4.7 Globulin 4.0 Albumin/Globulin Ratio 1.0 Amylase 206 H Lipase 16 Urine Source CLEAN CATCH Urine Color YELLOW Urine Clarity CLEAR Urine pH 9.0 Ur Specific [place] 1.010 Urine Protein NEGATIVE Urine Ketones NEGATIVE Urine Blood 4+ Urine Nitrite NEGATIVE Urine Bilirubin NEGATIVE Urine Urobilinogen NORMAL Urine Microscopic RBC 20-40 A Urine WBC NEGATIVE Urine Microscopic WBC <10 Ur Epithelial Cells <10 Urine Bacteria NEGATIVE Urine Glucose NEGATIVE 06/04/16 06/04/16 13:20 13:20 WBC RBC Hgb Hct MCV MCH MCHC RDW Std Deviation Plt Count MPV Immature Gran % (Auto) Neut % (Auto) Lymph % (Auto) [place] % (Auto) Eos % (Auto) Baso % (Auto) Immature Gran # (Auto) Neut # (Auto) Lymph # (Auto) [place] # (Auto) Eos # (Auto) Baso # (Auto) Segmented Neutrophils Sodium 142 Potassium 2.7 L Chloride 99 Carbon Dioxide 25 Anion Gap 18 BUN 6 L Creatinine 0.7 Estimated GFR/1.73 m2 > 60 BUN/Creatinine Ratio 9 Glucose 150 H Calculated Osmolality 284 Calcium 9.8 Magnesium 1.8 Total Bilirubin 0.30 AST 15 ALT 12 Alkaline Phosphatase 74 Total Protein 9.3 H Albumin 4.7 Globulin 5.0 Albumin/Globulin Ratio 1.0 Amylase Lipase Urine Source Urine Color Urine Clarity Urine pH Ur Specific [place] Urine Protein Urine Ketones Urine Blood Urine Nitrite Urine Bilirubin Urine Urobilinogen Urine Microscopic RBC Urine WBC Urine Microscopic WBC Ur Epithelial Cells Urine Bacteria Urine Glucose - CT/MRI 1 CT Study: Abdomen, Pelvis Impression: Abnormal (1. mild fatty inflitration of the liver. 2. tiny right renal cyst. 3. no bowel obstruction. no abscess. 4. prominent uterus with several degenerating fibroids.) - CHANGE OF SHIFT REPORT (ED Provider) Time of Transfer: 06:00 <Soraya Zamudio - Last Filed: 06/04/16 15:34> Departure <Skinny Mcknight - Last Filed: 06/04/16 05:19> <Soraya Zamudio - Last Filed: 06/04/16 15:34> - Departure Time of Disposition Order: 15:43 Certified Medical Emergency: Emergent <Edgar Baird - Last Filed: 06/04/16 15:45> - Departure DIAGNOSIS: Gastroenteritis and colitis, viral, Fibroids, intramural Disposition: HOME 01 Condition: Stable Prescriptions: Acetaminophen with Codeine [Tylenol with Codeine #3 Tablet] 1 each PO Q6H PRN PRN #20 tablet PRN Reason: Pain Diphenoxylate/Atropine [Lomotil] 1 each PO 4XDAY PRN PRN #20 tablet PRN Reason: Diarrhea Promethazine [Phenergan] 1 - 2 tab PO Q6H PRN PRN #18 tablet PRN Reason: Vomiting Ondansetron Odt [Zofran 4 mg Odt] 4 mg PO Q6H PRN PRN #20 tablet PRN Reason: Nausea Potassium Chloride [K-Tab ER] 20 meq PO BID #30 tablet.er Referrals: Alethea Chacon MD [STAFF PHYSICIAN] - Radha Mcknight MD [Primary Care Provider] - Forms: Return to School/Parent Work Instructions: Ondansetron tablets, Promethazine tablets, Nausea and Vomiting Attestation - Scribe Verification/Attestation Scribe:: Soraya Zamudio Acting as Scribe for:: Edgar Baird Scribe documention review:: This chart was documented by a scribe and accurately reflects the service the provider performed and the decisions made by the provider. <Soraya Zamudio - Last Filed: 06/04/16 15:34> Physician Attestation
[2016-06-04] MEDS ORDERED: NS 1,000 ML ONE (05:32)
[2016-06-04] MEDS ORDERED: NS 1,000 ML IV ONE ×2 (05:34→07:31)
[2016-06-04 06:14] LABS: AGAP 18; ALBUMIN 4.7 g/dL (3.5-5.0); ALKALINE PHOSPHATASE 72 U/L (32-104); AMYLASE 206 U/L (20-200); BUN 8 mg/dL (8-22); CALCIUM 10.2 mg/dL (8.8-10.2); CHLORIDE 96 mmol/L (98-107); COSMO 280; GOT 15 U/L (10-30); GPT 12 U/L (10-36); LIPASE 16 U/L (13-60); POTASSIUM 2.7 mmol/L (3.5-5.1); SODIUM 139 mmol/L (136-145); TCO2 25 mmol/L (25-35); TOTAL PROTEIN 9.1 g/dL (6.3-8.3)
[2016-06-04] MEDS ORDERED: PHENERGAN IV ONE (06:24)
[2016-06-04] MEDS ORDERED: PHENERGAN ONE (06:25)
[2016-06-04 06:38] LABS: BASO% 0.2 % (0.0-0.8); HEMATOCRIT 28.3 % (37.0-47.0); HEMOGLOBIN 8.8 g/dL (12.0-16.0); IMM GRAN# 0.03 X1000 (0.0-0.04); IMM GRAN% 0.2 % (0.0-0.5); LYMPH# 1.39 X1000 (1.2-3.4); LYMPH% 9.6 % (20.5-51.1); MCH 20.2 PG (27-31); MCHC 31.1 g/dL (33-37); MCV 64.9 FL (81-99); MONO# 0.49 X1000 (0.11-0.59); MONO% 3.4 % (1.7-9.3); MPV 9.2 FL (7.4-10.4); NEUT% 86.6 % (42.2-75.2); PLT 502 X1000 (130-400); RBC 4.36 XMIL (4.2-5.4)
[2016-06-04 06:40] LABS: MANUAL DIFF NEEDED? NO
[2016-06-04 07:07] LABS: URINE CULTURE PL NEEDED? NO; URINE SOURCE CLEAN CATCH
[2016-06-04 07:27] LABS: BILIRUBIN URINE NEGATIVE (NEGATIVE); BLOOD URINE 4+ (NEGATIVE); CLARITY CLEAR (CLEAR); COLOR YELLOW; GLUCOSE URINE NEGATIVE (NEGATIVE); LEUKOCYTES URINE NEGATIVE (NEGATIVE); NITRITE URINE NEGATIVE (NEGATIVE); PROTEIN URINE NEGATIVE (NEGATIVE); UROBILINOGEN URINE NORMAL
[2016-06-04 07:28] LABS: URINE EPITHELIAL CELLS <10 /HPF (<10); URINE RBC 20-40 /HPF (<10); URINE WBC <10 /HPF (<10)
[2016-06-04] MEDS ORDERED: KLOR-CON PO ONE ×3 (07:32→11:41)
[2016-06-04] MEDS ORDERED: ZOFRAN IV ONE ×2 (07:33→10:50)
--- NOTE | 2016-06-04 08:01 | Diag Imaging Result Document ---
PROCEDURE NAME: CT ABD/PELVIS W/ IV CONT ONLY - 06/04/2016 CT ABDOMEN AND PELVIS WITH INTRAVENOUS CONTRAST: FINDINGS: There is mild fatty infiltration of the liver. Normal spleen, pancreas, gallbladder, and adrenal glands. There is a tiny right renal cyst. No solid renal masses. No hydronephrosis. Normal aorta. No bowel obstruction. No inflammation about the cecum. No abscess. No free air. The urinary bladder is moderately distended and appears normal. The uterus is prominent and appears to contain several degenerating fibroids. Along the right side of the uterus is either a prominent fibroid measuring 4.6 cm or this is the right ovary. IMPRESSION: 1. Mild fatty infiltration of the liver. 2. Tiny right renal cyst. 3. No bowel obstruction. No abscess. 4. Prominent uterus with several degenerating fibroids. A preliminary report was given at 6:51 a.m.
[2016-06-04] MEDS ORDERED: CATAPRES ONE (09:28)
[2016-06-04] MEDS ORDERED: CATAPRES PO ONE (09:29)
[2016-06-04] MEDS ORDERED: LABETALOL IV ONE ×4 (10:40→14:33)
[2016-06-04] MEDS ORDERED: ZOFRAN ONE (10:50)
[2016-06-04 13:44] LABS: AGAP 18; ALBUMIN 4.7 g/dL (3.5-5.0); ALKALINE PHOSPHATASE 74 U/L (32-104); BUN 6 mg/dL (8-22); CALCIUM 9.8 mg/dL (8.8-10.2); CHLORIDE 99 mmol/L (98-107); COSMO 284; GOT 15 U/L (10-30); GPT 12 U/L (10-36); POTASSIUM 2.7 mmol/L (3.5-5.1); SODIUM 142 mmol/L (136-145); TCO2 25 mmol/L (25-35); TOTAL PROTEIN 9.3 g/dL (6.3-8.3)
[2016-06-04] MEDS ORDERED: NORVASC PO ONE (14:33)
[2016-06-04 16:40] VITALS: BP 146/097
== END 2016-06-04 16:41 | disposition home or self-care (01) ==
LOC: P.ED 05:10
DX: K52.9 Noninfective gastroenteritis and colitis, unspecified (principal); D25.1 Intramural leiomyoma of uterus; K76.0 Fatty (change of) liver, not elsewhere classified; N28.1 Cyst of kidney, acquired; R11.2 Nausea with vomiting, unspecified; R19.7 Diarrhea, unspecified; R35.0 Frequency of micturition; R10.84 Generalized abdominal pain; I10 Essential (primary) hypertension; Z79.899 Other long term (current) drug therapy
CPT/HCPCS: 74177; 80053; 81001; 82150; 83690; 83735; 85025; 96361; 96374; 96375; 96376; J2405; J2550; J7030; Q9967

== ENCOUNTER 2016-06-28 05:25 | Inpatient (IN) ==
[2016-06-26 11:09] LABS: MANUAL DIFF NEEDED? NO; URINE SOURCE VOIDED
[2016-06-26 11:53] LABS: BASO% 0.5 % (0.0-0.8); EOS# 0.24 X1000 (0.0-0.7); EOS% 2.9 % (0.0-10.0); HEMATOCRIT 28.6 % (37.0-47.0); HEMOGLOBIN 8.9 g/dL (12.0-16.0); IMM GRAN# 0.01 X1000 (0.0-0.04); IMM GRAN% 0.1 % (0.0-0.5); LYMPH# 2.85 X1000 (1.2-3.4); LYMPH% 34.1 % (20.5-51.1); MCH 20.1 PG (27-31); MCHC 31.1 g/dL (33-37); MCV 64.7 FL (81-99); MONO# 0.59 X1000 (0.11-0.59); NEUT% 55.4 % (42.2-75.2); PLT 281 X1000 (130-400); RBC 4.42 XMIL (4.2-5.4)
[2016-06-26 12:39] LABS: BILIRUBIN URINE NEGATIVE (NEGATIVE); BLOOD URINE TRACE (NEGATIVE); CLARITY CLEAR (CLEAR); COLOR YELLOW; GLUCOSE URINE NEGATIVE (NEGATIVE); LEUKOCYTES URINE TRACE (NEGATIVE); NITRITE URINE NEGATIVE (NEGATIVE); PROTEIN URINE TRACE mg/dL (NEGATIVE); SP GRAVITY URINE 1.015; URINE MICROSCOPIC NEEDED? YES; UROBILINOGEN URINE 1+(1 mg/dL)
[2016-06-26 12:40] LABS: URINE EPITHELIAL CELLS >10 /HPF (<10); URINE RBC <10 /HPF (<10)
--- NOTE | 2016-06-27 15:46 | CONSULTATION ---
PREOPERATIVE DIAGNOSES: 1. Uterine fibroids. 2. Pelvic pain. PLANNED PROCEDURE: Abdominal hysterectomy with bilateral salpingectomy. Possible bilateral oophorectomy. CONDITION: Stable. HISTORY OF PRESENT ILLNESS: Ms Hammonds is a 46-year-old, 2, para 2, who has experienced pelvic pain. Ultrasound revealed enlarged uterus with multiple fibroids, normal-appearing ovaries, and normal endometrial stripe. She desires definitive treatment with a hysterectomy. PAST MEDICAL HISTORY: Hypertension. PAST SURGICAL HISTORY: Tubal ligation, two previous vaginal deliveries. ALLERGIES: No known drug allergies. MEDICATIONS: Norvasc, potassium supplementation. FAMILY HISTORY: Noncontributory. SOCIAL HISTORY: Tobacco use positive. She is an every day smoker. PHYSICAL EXAMINATION: VITAL SIGNS: She is 5 feet 2 inches, 173 pounds. Blood pressure 152/84. GENERAL: She is alert and cooperative, no distress. NECK: Supple. LUNGS: Clear. HEART: Regular sinus rhythm. ABDOMEN: Soft. She has a mass extending up to midway between the umbilicus and the pubic bone. PELVIC: Deferred. EXTREMITIES: No cyanosis, clubbing, or edema in her extremities. ASSESSMENT: As above. 1. Uterine fibroids. 2. Pelvic pain. 3. Hypertension. 4. Tobacco use. PLAN: Hysterectomy, bilateral salpingectomy, possible oophorectomy. cc: Austin Middleton MD
[2016-06-28] MEDS ORDERED: LR 1,000 ML IV SCH (05:38)
[2016-06-28] MEDS ORDERED: FENTANYL ONE (06:14)
[2016-06-28] MEDS ORDERED: EPHEDRINE ONE (06:15)
[2016-06-28] MEDS ORDERED: DIPRIVAN 1% ONE ×2 (06:16→09:24)
[2016-06-28] MEDS ORDERED: VERSED ONE (06:18)
[2016-06-28] MEDS ORDERED: LR 1,000 ML ONE ×3 (06:58→09:01)
[2016-06-28] MEDS ORDERED: REGLAN ONE (07:04)
[2016-06-28] MEDS ORDERED: KEFZOL 1 GM/D5W 1 GM/50 ML IVPB ONE (07:04)
[2016-06-28] MEDS ORDERED: PEPCID ONE (07:04)
--- NOTE | 2016-06-28 07:43 | EKG Report ---
Test Performed on : 06/28/2016 07:30:12 AM Test Reason : post op Blood Pressure : / mmHG Vent. Rate : 073 BPM Atrial Rate : 073 BPM P-R Int : 146 ms QRS Dur : 074 ms QT Int : 436 ms P-R-T Axes : 036 023 026 degrees QTc Int : 480 ms Normal sinus rhythm. Nonspecific T wave abnormality Prolonged QT Abnormal ECG When compared with ECG of 11-APR-2016 10:30, Vent. rate has decreased BY 46 BPM Nonspecific T wave abnormality now evident in Inferior leads Nonspecific T wave abnormality now evident in Lateral leads Unconfirmed Result
[2016-06-28 07:49] LABS: BASO% 0.4 % (0.0-0.8); EOS# 0.37 X1000 (0.0-0.7); EOS% 3.1 % (0.0-10.0); HEMATOCRIT 24.6 % (37.0-47.0); HEMOGLOBIN 7.3 g/dL (12.0-16.0); IMM GRAN# 0.04 X1000 (0.0-0.04); IMM GRAN% 0.3 % (0.0-0.5); LYMPH# 4.85 X1000 (1.2-3.4); LYMPH% 41.3 % (20.5-51.1); MANUAL DIFF NEEDED? YES; MCH 19.5 PG (27-31); MCHC 29.7 g/dL (33-37); MCV 65.8 FL (81-99); MONO% 6.8 % (1.7-9.3); MPV 9.8 FL (7.4-10.4); NEUT% 48.1 % (42.2-75.2); PLT 485 X1000 (130-400); RBC 3.74 XMIL (4.2-5.4)
[2016-06-28] MEDS ORDERED: NS 500 ML ONE (07:50)
[2016-06-28 07:59] LABS: AGAP 13; BUN 10 mg/dL (8-22); CALCIUM 8.5 mg/dL (8.8-10.2); CHLORIDE 102 mmol/L (98-107); CK PROFILE 82 U/L (24-173); COSMO 283; POTASSIUM 3.1 mmol/L (3.5-5.1); SODIUM 140 mmol/L (136-145); TCO2 25 mmol/L (25-35)
[2016-06-28 08:28] LABS: LYMPHS 43 % (21-51); MONO 4 % (1-9)
[2016-06-28 08:29] LABS: EOS 2 % (1-10)
[2016-06-28] MEDS ORDERED: SODIUM CHLORIDE 0.9% ONE (08:48)
--- NOTE | 2016-06-28 09:04 | Diag Imaging Result Document ---
PROCEDURE NAME: CHEST-PORTABLE - 06/28/2016 AP PORTABLE CHEST, 06/28/2016 AT 0901 HOURS: FINDINGS: There is an endotracheal tube with its tip just above the efrain. There is ill-defined opacity in the left lower lobe which was not present on 05/03/2016. There is also some apparent atelectasis in the inferior right upper lobe which was not present previously. IMPRESSION: Atelectasis and/or pneumonia particularly with respect to the left lower lobe.
[2016-06-28 09:21] LABS: BE 6.2 mmoll (-3.0-3.0); BLOOD TYPE ARTERIAL; METHB 1.4 % (0.0-1.5); O2(CT) 12.7 mL/dL (15.0-23.0); PCO2(98.6) 35 mmHg (35-45); PO2(98.6) 218 mmHg (60-100); SAMPLE BLOOD; SAO2 99.6 % (95.0-100.0); SRATE 12 BPM; THB 9.1 g/dL (11.5-17.4); TVOL 600 mL; pH(98.6) 7.53 (7.35-7.45)
[2016-06-28 09:50] LABS: MODALITY VENTILATOR
[2016-06-28 09:51] LABS: ALLEN TEST NO; DRAW SITE OTHER
[2016-06-28] MEDS ORDERED: APRESOLINE IV ONE (10:39)
[2016-06-28 10:48] LABS: UR AMPHETAMINES QUAL NONE DETECTED (NONE DETECT); UR BARBITUATES QUAL NONE DETECTED (NONE DETECT); UR BENZODIAZEPIN QUAL NONE DETECTED (NONE DETECT); UR CANNABINOIDS QUAL PRESUMPTIVE POSITIVE (NONE DETECT); UR COCAINE QUAL NONE DETECTED (NONE DETECT); UR MDMA QUAL NONE DETECTED (NONE DETECT); UR METHADONE QUAL NONE DETECTED (NONE DETECT); UR METHAMPHETAMINE QUAL NONE DETECTED (NONE DETECT); UR OPIATES QUAL NONE DETECTED (NONE DETECT); UR OXYCODONE QUAL NONE DETECTED (NONE DETECT); UR PCP QUAL NONE DETECTED (NONE DETECT); UR TCA QUAL NONE DETECTED (NONE DETECT)
[2016-06-28] MEDS ORDERED: ZOFRAN IV PRN ×2 (10:50→10:57)
[2016-06-28] MEDS: NS 1,000 ML IV SCH ×2 (10:50→20:33)
[2016-06-28] MEDS ORDERED: DUONEB (A & A) INH PRN (10:57)
[2016-06-28] MEDS ORDERED: SODIUM CHLORIDE 0.9% INJ SCH (11:00)
[2016-06-28] MEDS ORDERED: HUMALOG DOSE (PARKWAY) SUBQ SCH (11:00)
--- NOTE | 2016-06-28 11:03 | Diag Imaging Result Document ---
PROCEDURE NAME: CHEST-PORTABLE - 06/28/2016 AP PORTABLE CHEST: TIME: 1033 hours. FINDINGS: The endotracheal tube remains with the tip slightly below the thoracic inlet. There is a right internal jugular catheter, the tip of which may still be within the internal jugular. There is no evidence of pneumothorax or pleural fluid collection. The left lower lobe is clear, unlike the previous study of 0901 hours. IMPRESSION: No evidence of acute disease.
[2016-06-28 11:04] LABS: HEMOGLOBIN A1C 5.5 % (4.8-6.0)
[2016-06-28] MEDS ORDERED: APRESOLINE IV PRN (11:05)
[2016-06-28 11:10] LABS: AGAP 13; ALBUMIN 3.6 g/dL (3.5-5.0); ALKALINE PHOSPHATASE 84 U/L (32-104); BUN 9 mg/dL (8-22); CALCIUM 9.1 mg/dL (8.8-10.2); CHLORIDE 105 mmol/L (98-107); CK PROFILE 94 U/L (24-173); COSMO 288; GOT 24 U/L (10-30); GPT 13 U/L (10-36); POTASSIUM 3.3 mmol/L (3.5-5.1); SODIUM 144 mmol/L (136-145); TCO2 27 mmol/L (25-35); TOTAL BILIRUBIN < 0.15 mg/dL (0.20-1.00); TOTAL PROTEIN 7.7 g/dL (6.3-8.3)
[2016-06-28] MEDS ORDERED: VANCOMYCIN IV PER PHARMACY MISC SCH (11:15)
[2016-06-28 11:24] LABS: BASO% 0.2 % (0.0-0.8); EOS# 0.04 X1000 (0.0-0.7); EOS% 0.2 % (0.0-10.0); HEMATOCRIT 27.4 % (37.0-47.0); HEMOGLOBIN 8.3 g/dL (12.0-16.0); IMM GRAN# 0.02 X1000 (0.0-0.04); IMM GRAN% 0.1 % (0.0-0.5); LYMPH# 1.01 X1000 (1.2-3.4); LYMPH% 6.3 % (20.5-51.1); MANUAL DIFF NEEDED? YES; MCH 19.6 PG (27-31); MCHC 30.3 g/dL (33-37); MCV 64.8 FL (81-99); MONO# 0.13 X1000 (0.11-0.59); MONO% 0.8 % (1.7-9.3); MPV 9.6 FL (7.4-10.4); NEUT% 92.4 % (42.2-75.2); PLT 499 X1000 (130-400); RBC 4.23 XMIL (4.2-5.4)
[2016-06-28] MEDS ORDERED: DUONEB (A & A) INH SCH (11:30)
[2016-06-28] MEDS: AZACTAM 1 GM in NS 50 ML IV SCH ×2 (13:07→19:55)
[2016-06-28] MEDS: PROTONIX IV SCH ×2 (13:07→22:36)
[2016-06-28 13:24] LABS: LYMPHS 12 % (21-51); MONO 1 % (1-9)
[2016-06-28] MEDS ORDERED: VANCOMYCIN 1,400 MG in NS 250 ML IV ONE (14:00)
[2016-06-28] MEDS ORDERED: ATROPINE SYRINGE ONE (15:58)
[2016-06-28] MEDS ORDERED: KLOR-CON PO ONE (16:15)
[2016-06-28] MEDS: DUONEB (A & A) INH SCH ×2 (16:28→21:45)
[2016-06-29] MEDS: DUONEB (A & A) INH SCH ×5 (00:45→22:17)
[2016-06-29] MEDS: VANCOMYCIN 1,200 MG in NS 250 ML IV SCH ×2 (01:28→19:09)
[2016-06-29] MEDS: AZACTAM 1 GM in NS 50 ML IV SCH ×2 (03:31→16:41)
[2016-06-29] MEDS: NS 1,000 ML IV SCH ×2 (05:57→16:41)
[2016-06-29 06:24] LABS: HEMATOCRIT 23.5 % (37.0-47.0); HEMOGLOBIN 6.9 g/dL (12.0-16.0); MCH 19.2 PG (27-31); MCHC 29.4 g/dL (33-37); MCV 65.3 FL (81-99); MPV 9.7 FL (7.4-10.4); RBC 3.6 XMIL (4.2-5.4)
[2016-06-29 06:50] LABS: AGAP 11; ALBUMIN 3.1 g/dL (3.5-5.0); ALKALINE PHOSPHATASE 66 U/L (32-104); BUN 7 mg/dL (8-22); CALCIUM 8.6 mg/dL (8.8-10.2); CHLORIDE 102 mmol/L (98-107); COSMO 274; GOT 14 U/L (10-30); GPT 9 U/L (10-36); MAGNESIUM 1.9 mg/dL (1.5-2.7); POTASSIUM 2.8 mmol/L (3.5-5.1); SODIUM 138 mmol/L (136-145); TCO2 26 mmol/L (25-35); TOTAL BILIRUBIN < 0.15 mg/dL (0.20-1.00); TOTAL PROTEIN 6.5 g/dL (6.3-8.3)
--- NOTE | 2016-06-29 07:35 | Diag Imaging Result Document ---
PROCEDURE NAME: HEAD W/O CONTRAST - 06/28/2016 CT OF THE HEAD WITHOUT CONTRAST: FINDINGS: There is some patient motion. There is no evidence of mass effect, bleed, or abnormal extra-axial fluid collection intracranially. There is mild mucosal thickening in some of the ethmoid air cells. The mastoids and middle ear cavities are well pneumatized. There appears to be some mucosal thickening in the posterior nares and nasopharynx which is incompletely imaged on this study. IMPRESSION: No evidence of acute intracranial disease. Nasopharyngeal mucosal thickening.
[2016-06-29] MEDS: POTASSIUM CHLORIDE 20 MEQ/SWI 20 MEQ/100 ML IVPB IV SCH ×4 (09:42→22:00)
--- NOTE | 2016-06-29 10:00 | HISTORY AND PHYSICAL ---
CHIEF COMPLAINT: Anaphylactic shock. HISTORY OF PRESENT ILLNESS: This is a 46-year-old female with a history of uterine fibroids, heavy periods, and anemia from blood loss. She was admitted after having presumed anaphylaxis to Ancef. The patient was being prepared for an abdominal hysterectomy. She was in the operating room, given Ancef and shortly after, she became unresponsive. She required intubation. Reportedly she had facial edema. She was ultimately transferred to ICU and hospitalists were asked to assume medical care of the patient. PAST MEDICAL HISTORY: Uterine fibroids, hypertension, gastroparesis with an emptying time half life of 153 minutes in March 2016, tobacco abuse, cyclical nausea and emesis syndrome, anemia secondary to blood loss. PAST SURGICAL HISTORY: Bilateral tubal ligation. SOCIAL HISTORY: She lives with family members. She smokes about a half pack a day. She has for 15 years. She denies alcohol use. She does report marijuana use. ALLERGIES: Presumed Ancef. HOME MEDICATIONS: Amlodipine 10 mg daily, potassium 20 mEq b.i.d.. REVIEW OF SYSTEMS: Unable to obtain due to the patient's status. PHYSICAL EXAMINATION: GENERAL: This is a 46-year-old female who is lying in the bed, intubated, continues. VITAL SIGNS: Blood pressure is running in the 200s over 100 to 120's per ART line. This is consistent with cuff. Heart rate is 98, respirations are per ventilator, her oxygen saturations are 100%. HEENT: Head is normocephalic, atraumatic. Pupils are equal, round and reactive to light. Sclerae are anicteric. Mucous membranes are dry. NECK: Supple. Trachea is midline. She is intubated. CARDIOVASCULAR: Regular rate and rhythm. S1, S2 appreciated. PULMONARY: Breath sounds are clear. Chest rises and falls symmetrically with ventilator assisted respirations. GASTROINTESTINAL: Soft, nontender, nondistended, with bowel sounds in all four quadrants. NEUROLOGICAL: She continues to be sedated and she is intubated. ASSESSMENT: 1. Presumed anaphylaxis most likely secondary to Ancef. 2. Hypertension. 3. Anemia secondary to blood loss. 4. Dysfunctional uterine bleeding secondary to uterine fibroids. 5. Left lower lobe pneumonia. PLAN: The patient will continue in ICU. We will continue monitoring. During the exam she was extubated per Dr. Mcknight, Anesthesia. She was placed on 2 L nasal cannula. We will continue to monitor. We will obtain blood cultures, continue supplemental oxygen. For antibiotic coverage we will use vancomycin and Azactam. DuoNebs q.6h. to q.2h. p.r.n. Hydralazine p.r.n. for hypertension. Protonix for GI prophylaxis. SCDs for DVT prophylaxis. Dictated by MARLENY Lo for Kumar Silverman MD cc: MARLENY Lo MD
[2016-06-29 17:23] LABS: AGAP 12; BUN 5 mg/dL (8-22); CALCIUM 8.3 mg/dL (8.8-10.2); CHLORIDE 103 mmol/L (98-107); COSMO 276; POTASSIUM 2.9 mmol/L (3.5-5.1); SODIUM 139 mmol/L (136-145); TCO2 24 mmol/L (25-35)
[2016-06-29] MEDS ORDERED: BREVIBLOC ONE (18:16)
[2016-06-29] MEDS ORDERED: QUELICIN (DOSE) ONE (18:16)
[2016-06-29] MEDS ORDERED: ZOFRAN ONE (18:16)
[2016-06-29] MEDS ORDERED: LABETALOL (DOSE) ONE (18:16)
[2016-06-29] MEDS ORDERED: EPINEPHRINE ONE (18:16)
[2016-06-29] MEDS ORDERED: BENADRYL ONE (18:16)
[2016-06-29] MEDS ORDERED: DECADRON ONE (18:16)
[2016-06-29] MEDS ORDERED: ZEMURON ONE (18:16)
[2016-06-29] MEDS ORDERED: XYLOCAINE-MPF 2% ONE (18:16)
[2016-06-29] MEDS ORDERED: VENTOLIN HFA ONE (18:16)
[2016-06-29] MEDS: PROTONIX IV SCH ×2 (19:06→22:49)
[2016-06-29] MEDS: PHENERGAN PO PRN (20:00)
[2016-06-30] MEDS: AZACTAM 1 GM in NS 50 ML IV SCH ×2 (00:04→09:25)
[2016-06-30] MEDS: NS 1,000 ML IV SCH (03:07)
[2016-06-30] MEDS: DUONEB (A & A) INH SCH ×2 (03:29→09:00)
[2016-06-30] MEDS: VANCOMYCIN 1,200 MG in NS 250 ML IV SCH (06:41)
[2016-06-30] MEDS: PHENERGAN PO PRN (06:42)
[2016-06-30 07:00] LABS: HEMATOCRIT 28.3 % (37.0-47.0); HEMOGLOBIN 8.8 g/dL (12.0-16.0); MCH 21.4 PG (27-31); MCHC 31.1 g/dL (33-37); MCV 68.9 FL (81-99); MPV 9.8 FL (7.4-10.4); RBC 4.11 XMIL (4.2-5.4)
[2016-06-30 07:11] LABS: AGAP 11; ALBUMIN 3.2 g/dL (3.5-5.0); ALKALINE PHOSPHATASE 66 U/L (32-104); BUN 4 mg/dL (8-22); CALCIUM 8.6 mg/dL (8.8-10.2); CHLORIDE 104 mmol/L (98-107); COSMO 272; GOT 14 U/L (10-30); GPT 11 U/L (10-36); POTASSIUM 3.1 mmol/L (3.5-5.1); SODIUM 138 mmol/L (136-145); TCO2 23 mmol/L (25-35); TOTAL PROTEIN 6.4 g/dL (6.3-8.3)
--- NOTE | 2016-06-30 08:33 | PROGRESS NOTE ---
DATE: 06/29/2016 SUBJECTIVE: Ms. Hammonds is feeling better today. She has no specific complaints. She denies any difficulty with breathing, any chest pain, shortness of breath. OBJECTIVE: Vital Signs: Blood pressure 159/93 with a heart rate of 90. Respirations are 20 with a temperature of 98.9, with saturations of 99-100% on room air. Cardiovascular: Regular rate and rhythm. S1 and S2 appreciated. Pulmonary: Breath sounds are clear with no increased work of breathing noted. Gastrointestinal: Abdomen is soft, nontender, nondistended with bowel sounds in all 4 quadrants. Back: No CVAT. No spine tenderness. Musculoskeletal: Good range of motion of joints. Neurologic: She is alert and oriented x3. Cranial nerves 2-12 grossly intact. Extremities: No clubbing, cyanosis, or edema. Pulses are palpable x4. Calves nontender. DIAGNOSTICS: WBC is 14.2 with hemoglobin of 6.9, hematocrit 23.5, and platelets 401,000. Sodium is 139. Potassium 2.9. BUN is 5. Creatinine 0.7 with a glucose of 113. ASSESSMENT AND PLAN: 1. Presumed anaphylaxis, most likely secondary to Ancef. 2. Hypertension. 3. Anemia secondary to blood loss. 4. Dysfunctional uterine bleeding secondary to uterine fibroids. 5. Left lower lobe pneumonia. The patient is on room air with oxygen saturations running 98-100%. Hemoglobin and hematocrit have dropped to 6.9 and 23.5. We will transfuse and trend her labs; otherwise, we will continue her current regimen. Dictated by MARLENY Lo for Kumar Silverman MD cc: MARLENY Lo MD
[2016-06-30] MEDS ORDERED: NORVASC PO SCH (09:00)
[2016-06-30] MEDS ORDERED: COREG PO SCH (09:30)
[2016-06-30 11:17] VITALS: BP 168/98
--- NOTE | 2016-06-30 21:00 | DISCHARGE SUMMARY ---
ADMISSION DATE: 06/28/2016 DISCHARGE DATE: 06/30/2016 DIAGNOSES: 1. Presumed anaphylaxis most likely secondary to Ancef. 2. Hypertension. 3. Anemia secondary to blood loss. 4. Dysfunctional uterine bleeding secondary to uterine fibroids. 5. Left lower lobe pneumonia. PROCEDURES: 06/28/2016: CT of the head reveals no evidence of acute intracranial disease. 06/28/2016: Chest x-ray reveals no evidence of acute disease. The left lower lobe is clear when compared to chest x-ray performed 2-3 hours earlier. MICROBIOLOGY: Blood cultures x2 with no growth after 48 hours. Sputum culture with no growth. HOSPITAL COURSE: Ms. Hammonds presented to the hospital for a hysterectomy due to dysfunctional uterine bleeding and fibroids, and then just after receiving Ancef she experienced what is presumed to be an anaphylactic reaction, was intubated and brought to ICU. Within about an hour of coming to the ICU she was extubated. At that time she was a little sleepy from anesthesia but she was oriented and could answer questions appropriately. She has progressed back to her normal state having no specific complaints. Her hemoglobin and hematocrit did drop to 6.9 and 23.5. She has been transfused 2 units of packed cells and today her hemoglobin and hematocrit are 8.8 and 28.3 which is about where she has been for quite some time now. She has remained afebrile. She was given vancomycin as well as Azactam which she has received for 3 days. Blood pressures have ranged in the 140s-180s/primarily 70s-90s through the hospitalization. She is admittedly noncompliant with taking her Norvasc at home. We have discussed the importance of her taking medications as prescribed as we had on previous admissions which she states she understands. PHYSICAL EXAMINATION: Cardiovascular: Regular rate and rhythm. S1, S2 appreciated. Pulmonary: Breath sounds are clear. No increased work of breathing noted. Gastrointestinal: Abdomen is soft, nontender, nondistended. Bowel sounds in all 4 quadrants. Extremities: No clubbing, cyanosis, or edema. Calves nontender. Pulses are palpable x4. DISCHARGE VITAL SIGNS: Blood pressure is 180/80 with a heart rate of 79, respirations are 20, temperature is 98.3 degrees with room air saturations 100%. DISCHARGE ACTIVITY: As tolerated. DISCHARGE DIET: Regular. DISCHARGE MEDICATIONS: 1. Norvasc 10, 1 daily. 2. Klor-Con 20 b.i.d. FOLLOWUP: She is to follow up with Dr. Austin Middleton in a week. DISPOSITION: She is being discharged home in stable condition with family members. TIME SPENT: This is a greater than 30 minute discharge. Dictated by MARLENY Lo for Kumar Silverman MD cc: MARLENY Lo MD
== END 2016-06-30 10:40 | disposition home or self-care (01) ==
LOC: P.WC 05:25 → P.ICU 07:45
PROVIDERS: ATTEND Family Medicine

== ENCOUNTER 2016-07-17 07:52 | Inpatient (IN) ==
[2016-07-14 11:04] LABS: URINE SOURCE CLEAN CATCH
[2016-07-14 11:24] LABS: BILIRUBIN URINE NEGATIVE (NEGATIVE); BLOOD URINE NEGATIVE (NEGATIVE); CLARITY CLEAR (CLEAR); COLOR YELLOW; GLUCOSE URINE NEGATIVE (NEGATIVE); LEUKOCYTES URINE TRACE (NEGATIVE); NITRITE URINE NEGATIVE (NEGATIVE); PROTEIN URINE NEGATIVE (NEGATIVE); UROBILINOGEN URINE NORMAL
[2016-07-14 11:29] LABS: BASO% 0.6 % (0.0-0.8); EOS# 0.28 X1000 (0.0-0.7); HEMATOCRIT 32.5 % (37.0-47.0); HEMOGLOBIN 10.2 g/dL (12.0-16.0); IMM GRAN# 0.02 X1000 (0.0-0.04); IMM GRAN% 0.2 % (0.0-0.5); LYMPH# 3.46 X1000 (1.2-3.4); LYMPH% 37.3 % (20.5-51.1); MANUAL DIFF NEEDED? YES; MCH 21.9 PG (27-31); MCHC 31.4 g/dL (33-37); MCV 69.9 FL (81-99); MONO# 0.77 X1000 (0.11-0.59); MONO% 8.3 % (1.7-9.3); NEUT% 50.6 % (42.2-75.2); PLT 376 X1000 (130-400); RBC 4.65 XMIL (4.2-5.4)
[2016-07-14 11:38] LABS: URINE EPITHELIAL CELLS >10 /HPF (<10); URINE WBC <10 /HPF (<10)
[2016-07-14 13:15] LABS: EOS 1 % (1-10); LYMPHS 44 % (21-51); MONO 6 % (1-9)
--- NOTE | 2016-07-16 16:40 | HISTORY AND PHYSICAL ---
DATE OF PLANNED PROCEDURE: 07/17/2016 PREOP: 1. Uterine fibroids. 2. Pelvic pain. PLANNED PROCEDURE: Abdominal hysterectomy with bilateral salpingectomy, possible oophorectomy. CONDITION: Stable. HISTORY OF PRESENT ILLNESS: Ms Hammonds is a 46-year-old 2, para 2, who has experienced pelvic pain and ultrasound revealed enlarged uterus with fibroids, normal-appearing ovaries and a normal endometrial stripe. She desires definitive treatment with hysterectomy. Should be noted that this case was scheduled for approximately 1 month ago however she appeared to react to the antibiotic and the case was canceled. She is currently without complaints and desiring to proceed with procedure. PAST MEDICAL HISTORY: Significant for hypertension. PAST SURGICAL HISTORY: Tubal ligation, 2 previous vaginal deliveries. ALLERGIES: No allergies. MEDICATIONS: Norvasc and potassium supplementation. FAMILY HISTORY: Noncontributory. SOCIAL HISTORY: Positive tobacco use. PHYSICAL EXAMINATION: VITAL SIGNS: Stable. She is afebrile. She is 5-2 inches, 173 pounds. GENERAL: Is alert and cooperative, no distress. NECK: Supple. LUNGS: Clear. HEART: Regular sinus rhythm. ABDOMEN: Soft. Uterus extends approximately to 16 week size. PELVIC: Deferred. EXTREMITIES: No cyanosis, clubbing, edema her extremities. ASSESSMENT: 1. Uterine fibroids. 2. Pelvic pain. 3. Enlarged uterus. 4. Hypertension. 5. Tobacco use. PLAN: Abdominal hysterectomy with bilateral salpingectomy and possible bilateral oophorectomy. cc: Austin Middleton MD
[2016-07-17] MEDS ORDERED: FENTANYL ONE ×2 (09:00→10:55)
[2016-07-17] MEDS ORDERED: NEOSTIGMINE ONE (09:03)
[2016-07-17] MEDS ORDERED: QUELICIN ONE (09:03)
[2016-07-17] MEDS ORDERED: XYLOCAINE-MPF 2% ONE ×3 (09:03→09:48)
[2016-07-17] MEDS ORDERED: ZOFRAN ONE (09:08)
[2016-07-17] MEDS ORDERED: DECADRON ONE (09:08)
[2016-07-17] MEDS ORDERED: ZEMURON ONE (09:08)
[2016-07-17] MEDS ORDERED: DIPRIVAN 1% ONE (09:09)
[2016-07-17] MEDS ORDERED: PEPCID PO ONE (09:15)
[2016-07-17] MEDS ORDERED: NORVASC PO ONE (09:30)
[2016-07-17] MEDS ORDERED: CLINDAMYCIN 900 MG/NS 900 MG/50 ML IVPB ONE (09:38)
[2016-07-17] MEDS ORDERED: LR 1,000 ML IV SCH ×2 (10:00→13:49)
[2016-07-17] MEDS ORDERED: VALIUM ONE (10:13)
[2016-07-17] MEDS ORDERED: EPHEDRINE ONE (10:55)
[2016-07-17] MEDS ORDERED: TORADOL ONE (11:00)
[2016-07-17] MEDS ORDERED: D10W 500 ML ONE ×2 (11:11→11:52)
[2016-07-17 11:12] LABS: URINE MICROSCOPIC NEEDED? NO; URINE SOURCE CATH
[2016-07-17 11:14] LABS: BILIRUBIN URINE NEGATIVE (NEGATIVE); BLOOD URINE NEGATIVE (NEGATIVE); CLARITY CLEAR (CLEAR); COLOR YELLOW; GLUCOSE URINE NEGATIVE (NEGATIVE); LEUKOCYTES URINE NEGATIVE (NEGATIVE); NITRITE URINE NEGATIVE (NEGATIVE); PROTEIN URINE NEGATIVE (NEGATIVE); SP GRAVITY URINE 1.015; UROBILINOGEN URINE NORMAL
[2016-07-17] MEDS: MORPHINE ONE ×2 (12:26→12:31)
[2016-07-17] MEDS ORDERED: PHENERGAN IM PRN (12:31)
[2016-07-17] MEDS ORDERED: ZOFRAN IV PRN (12:31)
[2016-07-17] MEDS ORDERED: ESTRADERM 0.05 MG/24 HR PATCH TD ONE ×2 (12:31→18:30)
[2016-07-17] MEDS ORDERED: LR 1,000 ML ONE (12:42)
[2016-07-17] MEDS: APRESOLINE ONE ×2 (12:45→13:05)
[2016-07-17] MEDS ORDERED: MORPHINE ONE (12:56)
[2016-07-17] MEDS ORDERED: MORPHINE PCA IV PRN (13:49)
[2016-07-17] MEDS ORDERED: NARCAN IV PRN (13:49)
[2016-07-17] MEDS: MYLICON PO SCH ×3 (14:30→21:14)
--- NOTE | 2016-07-17 14:32 | OPERATIVE NOTE ---
PROCEDURE DATE: 07/17/2016 PREOPERATIVE DIAGNOSES: 1. Enlarged uterus. 2. Uterine fibroids. 3. Chronic hypertension. POSTOPERATIVE DIAGNOSES: 1. Enlarged uterus. 2. Uterine fibroids. 3. Chronic hypertension. PROCEDURE: Abdominal hysterectomy with bilateral salpingo-oophorectomy. SURGEON: Austin Middleton MD AUTO DETAILER: Austin Cruz MD ANESTHESIA: General endotracheal with Dr. Colin. FINDINGS: Enlarged fibroid uterus and dense pelvic adhesions. COMPLICATIONS: None. ESTIMATED BLOOD LOSS: 350 mL. URINE OUTPUT: 1000 mL. SPECIMEN TO PATHOLOGY: Uterus, tubes, and ovaries. DRAINS: Fleming catheter. DESCRIPTION OF PROCEDURE: Please refer to Ms. Hammonds's H P dictations. She was appropriately consented and brought to the operating room, where she was placed under general endotracheal anesthesia and prepped and draped in a supine position with Fleming catheter being inserted. A Pfannenstiel skin incision was made extended through the subcuticular tissue and the fascia. Muscle was dissected from underneath the rectus fascia and pulled to the side. Peritoneum was entered bluntly and the O'Cl-O'Lindsey retractor was placed and the bowel was packed away. Attempted to elevate the uterus out of the pelvis, however, due to scar tissue would not elevate out. So using the LigaSure on the right side. The round ligament was grasped, cauterized, and cut. Unable to dissect down to identify the ureters due to a lateral fibroid obstructing the view. We were able to isolate the infundibulopelvic, which was grasped, cauterized and cut, and then the rest of the supporting ligaments of the ovary were grasped, cauterized, and cut. Then attention was turned to the patient's left side where the round ligament was grasped, cauterized, and cut and then after dissecting of scar tissue away and the infundibulopelvic was grasped, cauterized, and cut. There were some adhesions from the anterior peritoneum and bladder to the uterus, these were sharply dissected off, and the bladder was pushed down. However, I was able to adequately isolate the uterine artery due to the of the uterus, so it was morcellated, freeing up room, where the uterine artery could be grasped, cut, and suture ligated. Then the cervix, the cardinal ligaments were grasped, cut, and suture ligated until the uterosacrals were grasped, cut, and suture ligated, thus freeing up the cervix and the cuff was closed with a single figure-eight stitch of 0 Polysorb. Irrigation was done. There was no gina bleeding. However, there was some oozing. There was an attempt to identify ureter peristalsis. Ureter peristalsis, however, could not due to the scar tissue and inflammation. However, patient was continuing to maintain a very vigorous urine output both before starting the hysterectomy and then as closing she maintained good clear urine output as much as 1000 mL during the case. Due to some oozing Surgifoam was placed. The retractor and laps were removed. The peritoneum was reapproximated with chromic. Fascia reapproximated with Maxon, subcutaneous with 0 Polysorb and then skin with jackie. All counts were correct. Did attempt to do a cystoscopy, however, there were technical difficulties, could not get a good clear review of the bladder, so we will watch urine output and I will also obtain CMC in the morning. If there is any concern ureter destruction, we will get an IVP. cc: Austin Middleton MD
[2016-07-17] MEDS: TORADOL IV SCH ×2 (18:13→23:51)
[2016-07-17] MEDS: PERIDEX MT SCH (21:14)
[2016-07-17] MEDS: KLOR-CON PO SCH (21:14)
[2016-07-17] MEDS: COLACE PO SCH (21:14)
[2016-07-17] MEDS: LR 1,000 ML IV SCH ×2 (21:24→22:02)
[2016-07-18] MEDS: LR 1,000 ML IV SCH (04:10)
[2016-07-18] MEDS: TORADOL IV SCH ×2 (05:51→13:09)
[2016-07-18 06:12] LABS: BASO% 0.1 % (0.0-0.8); HEMATOCRIT 28.3 % (37.0-47.0); HEMOGLOBIN 8.8 g/dL (12.0-16.0); IMM GRAN# 0.04 X1000 (0.0-0.04); IMM GRAN% 0.3 % (0.0-0.5); LYMPH# 1.97 X1000 (1.2-3.4); LYMPH% 13.3 % (20.5-51.1); MANUAL DIFF NEEDED? YES; MCH 22.1 PG (27-31); MCHC 31.1 g/dL (33-37); MCV 70.9 FL (81-99); MONO# 1.94 X1000 (0.11-0.59); MONO% 13.1 % (1.7-9.3); NEUT% 73.2 % (42.2-75.2); PLT 402 X1000 (130-400); RBC 3.99 XMIL (4.2-5.4)
[2016-07-18 06:36] LABS: ALBUMIN 3.3 g/dL (3.5-5.0); CALCIUM 8.4 mg/dL (8.8-10.2); POTASSIUM 3.3 mmol/L (3.5-5.1); TOTAL BILIRUBIN 0.4 mg/dL (0.20-1.00); TOTAL PROTEIN 6.9 g/dL (6.3-8.3)
[2016-07-18 06:38] LABS: BANDS 6 % (0-1); LYMPHS 13 % (21-51); MONO 4 % (1-9); NRBC 2 % (0-0)
[2016-07-18 06:39] LABS: HYPOCHROM 2+; TARGET CELLS 2+
[2016-07-18] MEDS: KLOR-CON PO SCH ×2 (09:41→20:56)
[2016-07-18] MEDS: NORVASC PO SCH (09:41)
[2016-07-18] MEDS: COLACE PO SCH ×2 (09:41→20:56)
[2016-07-18] MEDS: PERIDEX MT SCH ×2 (09:41→20:56)
[2016-07-18] MEDS: MYLICON PO SCH ×4 (09:42→20:56)
[2016-07-18] MEDS ORDERED: ESTRADERM 0.05 MG/24 HR PATCH TD ONE (11:00)
[2016-07-18] MEDS ORDERED: NORCO-5 PO PRN (14:20)
[2016-07-18] MEDS: NORCO-10 PO PRN ×2 (14:33→20:56)
[2016-07-18] MEDS ORDERED: DULCOLAX PR PRN (14:39)
[2016-07-18] MEDS: PHENERGAN IM PRN (22:02)
[2016-07-18] MEDS: DEMEROL IM PRN (22:02)
[2016-07-19] MEDS: PHENERGAN IM PRN (04:47)
[2016-07-19] MEDS: DEMEROL IM PRN (04:47)
[2016-07-19 07:17] VITALS: BP 131/83
[2016-07-19] MEDS: COLACE PO SCH (09:19)
[2016-07-19] MEDS: PERIDEX MT SCH (09:19)
[2016-07-19] MEDS: MYLICON PO SCH (09:19)
[2016-07-19] MEDS: NORVASC PO SCH (09:19)
[2016-07-19] MEDS: KLOR-CON PO SCH (09:24)
--- NOTE | 2016-07-21 17:17 | DISCHARGE SUMMARY ---
ADMISSION DATE: 07/17/2016 DISCHARGE DATE: 07/19/2016 ADMISSION DIAGNOSIS: Enlarged uterus, pelvic pain. DISCHARGE DIAGNOSIS: Enlarged uterus, pelvic pain. PROCEDURES: Abdominal hysterectomy with bilateral salpingo-oophorectomy. CONDITION: Stable. DIET: As tolerated. ACTIVITY: Routine . FOLLOWUP: She is to follow up in 1 week for staple removal. DISCHARGE MEDICATIONS: Narcotics for pain control and she is to resume her previous. HOSPITAL COURSE: Ms. Hammonds was admitted the morning of the and underwent abdominal hysterectomy with bilateral salpingo-oophorectomy and has done well afterwards. Currently, she is post postop day 2 and ambulating, tolerating p.o., and desiring discharge. PHYSICAL EXAMINATION: Vital signs: Pulse 80, respirations 16, blood pressure 131/83. Pertinent examination: Her abdomen is soft. Incision is dry and intact. LABORATORY VALUES: Hemoglobin and hematocrit of 8/28. Admit was . DISPOSITION: We will discharge with above instructions. cc: Austin Middleton MD
== END 2016-07-19 11:00 | disposition home or self-care (01) ==
LOC: P.WC 07:52 → EDSTATUS 10:30
PROVIDERS: ADMIT Obstetrics & Gynecology; ATTEND Obstetrics & Gynecology

== ENCOUNTER 2016-07-22 08:32 | Observation (INO) ==
[2016-07-22 09:27] LABS: BASO% 0.2 % (0.0-0.8); EOS# 0.01 X1000 (0.0-0.7); EOS% 0.1 % (0.0-10.0); HEMATOCRIT 34.3 % (37.0-47.0); HEMOGLOBIN 10.8 g/dL (12.0-16.0); IMM GRAN# 0.04 X1000 (0.0-0.04); IMM GRAN% 0.3 % (0.0-0.5); LYMPH# 1.48 X1000 (1.2-3.4); LYMPH% 9.6 % (20.5-51.1); MANUAL DIFF NEEDED? NO; MCH 21.7 PG (27-31); MCHC 31.5 g/dL (33-37); MONO# 0.63 X1000 (0.11-0.59); MONO% 4.1 % (1.7-9.3); NEUT% 85.7 % (42.2-75.2); PLT 513 X1000 (130-400); RBC 4.97 XMIL (4.2-5.4)
[2016-07-22] MEDS ORDERED: NS 1,000 ML IV ONE ×2 (09:42→11:21)
[2016-07-22] MEDS ORDERED: ZOFRAN IV ONE (09:42)
[2016-07-22 09:45] LABS: ALBUMIN 4.1 g/dL (3.5-5.0); CALCIUM 10.1 mg/dL (8.8-10.2); TOTAL BILIRUBIN 0.4 mg/dL (0.20-1.00); TOTAL PROTEIN 9.4 g/dL (6.3-8.3)
[2016-07-22] MEDS ORDERED: SODIUM CHLORIDE 0.9% INJ ONE (11:19)
[2016-07-22] MEDS ORDERED: PHENERGAN IV ONE (11:19)
[2016-07-22] MEDS ORDERED: POTASSIUM CHLORIDE 20 MEQ/SWI 20 MEQ/100 ML IVPB IV ONE (11:21)
--- NOTE | 2016-07-22 11:24 | PROVIDER DOCUMENTATION ---
This chart was entered by Sonja Mcginnis, acting as scribe for Edgar Baird MD. HPI-Abdominal Pain/GI Problem - General Chief Complaint: Post Op Complaint Stated Complaint: POST OP COMPLAINT Time Seen by Provider: 07/22/16 09:42 Source: patient Allergies/Adverse Reactions: Patient Allergies Allergy/AdvReac Type Severity Reaction Status Date / Time cefazolin sodium * AdvReac Severe ANAPHYLAXIS Verified 07/06/16 15:07 [From [facility]] Home Medications: Home Medication List Medication Instructions Recorded Confirmed Last Taken Type Potassium Chloride [K-Tab ER] 20 meq PO BID #30 tablet.er 06/04/16 07/22/16 07:00 Rx Amlodipine [Norvasc] 10 mg PO DAILY 06/14/16 07/22/16 07/22/16 07:00 History Hydrocodone/APAP 5 mg/325 mg 1 - 2 each PO Q4H PRN PRN #40 07/19/16 07/22/16 07:00 Rx [[place]-5] tablet - History of Present Illness-ABD Nature of Presenting Problems: pt is a 46 year old female present to the Er with cc of vomiting, diarrhea since sunday night. She got a complete hysterectomy on sunday and went home sunday morning and has been vomiting and nauseous, and in pain since sunday night. Pt takes norvasc for blood pressure and received norco 10 for pain after hyterectomy, denies taking ABX. Pt states Dr callejas did the hysterectomy on Sunday. Abdominal Pain Onset Location: reports: RLQ, LLQ Pain Radiation: reports: no radiation Quality of Pain: reports: sharp, stabbing Severity in ED: reports: moderate Onset/Duration: reports: 4 days ago Timing: reports: still present, getting worse Activities at Onset: reports: none Exposure to sick contacts?: No Modifying Factors: improves with: nothing Associated Symptoms: reports: diarrhea, nausea, vomiting. denies: arm pain, back/neck pain, chest pain, constipation, cough, dizziness, headaches, heartburn , joint pain, malaise, seizure, shortness of breath Last BM: unsure Dark Stools Present?: reports: none noticed Rectal Bleeding: reports: none Rectal Pain: reports: none Emesis Description: reports: none Bruising or Bleeding Gums?: No Similar Symptoms Previously?: No Recently seen or treated by another doctor?: No Review of Systems - Adult - REVIEW OF SYSTEMS - ADULT Constitutional: reports: no symptoms reported Eyes: reports: no symptoms reported Ears, Nose, Mouth & Throat: reports: no symptoms reported Cardiovascular: denies: chest pain, edema, irregular heart rate, orthopnea Respiratory: reports: no symptoms reported Gastrointestinal: reports: abdominal pain, nausea, vomiting. denies: hematemesis, constipation, difficulty swallowing Genitourinary: denies: dysuria, discharge, frequency, hematuria Musculoskeletal: denies: bone pain, back pain, frequent leg cramps, joint pain Integumentary: reports: no symptoms reported Neurological: reports: no symptoms reported Psychiatric: reports: no symptoms reported Endocrine: reports: no symptoms reported Hematologic/Lymphatic: reports: no symptoms reported Allergic/Immunologic: reports: no symptoms reported All Other Systems: Reviewed and Negative Past History - Adult - PAST MEDICAL HISTORY-ADULT Review of Records: reports: Old Records Reviewed, Nursing Assessment Review Major Childhood Illnesses: reports: denies history Cardiovascular: reports: HTN Respiratory: reports: denies history Gastrointestinal: reports: denies history Obstetrical/Gynecological: reports: fibroids (with AUB), other (tubal ligation) Genitourinary: reports: denies history Musculoskeletal: reports: denies history Neurological: reports: Seizures/Epilepsy Endocrine/Immune: reports: denies history Other Conditions: reports: denies history - PRIOR SURGERIES/PROCEDURES Surgical/Procedure History: reports: BTL - IMMUNIZATION STATUS Childhood Immunizations: See Nurse Assessment Flu Vaccine: See Nurse Assessment - FAMILY HISTORY Family History: reviewed, not pertinent - SOCIAL HISTORY Smoking: cigarettes, less than 1 pack/day Provider spent 3-5 mins advising pt. on dangers of tobacco.: Discussed manners to quit use, and f/u contacts for add'l counseling. Substance Use: denies Alcohol Use Frequency: never Physical Exam-General - PHYSICAL EXAM-ADULT Initial Vital Signs Reviewed: Yes - CONSTITUTIONAL General Appearance: alert, moderate distress - EYES Eyes: PERRL/EOMI - NECK Neck: non-tender, full range of motion - RESPIRATORY Respiratory: chest non-tender, lungs clear, normal breath sounds, no pleuratic chest pain - CARDIOVASCULAR Cardiovascular: normal peripheral pulses, regular rate, rhythm - GASTROINTESTINAL (ABDOMEN) Abdominal Exam: tenderness (TTP lower abdomen), other (Surgicual incision across lower abdomen, jackie intact, no drainage) - LYMPHATIC Lymphatic: no adenopathy - MUSCULOSKELETAL Back Exam: normal inspection, no CVA tenderness Extremity: normal range of motion, non-tender, normal gait, normal inspection, no pedal edema, no calf tenderness, normal capillary refill - SKIN Integumentary: normal color, normal turgor, warm/dry - NEUROLOGIC Neurologic: grossly normal, no motor/sensory deficits - PSYCHIATRIC Psych/Mental Status: normal mood/affect, normal thought content, normal thought process, oriented x 3 Progress - PLAN OF CARE/RESULTS Progress/Plan/Lab Results: Vital Signs - 8 hr 07/22/16 08:38 Temperature 99.2 F Pulse Rate 123 H Respiratory Rate 22 Blood Pressure 167/115 O2 Sat by Pulse Oximetry 100 Laboratory Results - last 24 hr 07/22/16 07/22/16 09:00 09:00 WBC 15.40 H RBC 4.97 Hgb 10.8 L Hct 34.3 L MCV 69.0 L MCH 21.7 L MCHC 31.5 L RDW Std Deviation 28.5 H Plt Count 513 H MPV Not Reportable Immature Gran % (Auto) 0.3 Neut % (Auto) 85.7 H Lymph % (Auto) 9.6 L Stearns % (Auto) 4.1 Eos % (Auto) 0.1 Baso % (Auto) 0.2 Immature Gran # (Auto) 0.04 Neut # (Auto) 13.21 H Lymph # (Auto) 1.48 Stearns # (Auto) 0.63 H Eos # (Auto) 0.01 Baso # (Auto) 0.03 Estimated GFR/1.73 m2 40 Orders Category Date Time Status Saline Loc DIRECTED Care 07/22/16 08:47 Active NPO Diet 07/22/16 08:47 Active FLAT/UPRIGHT ABD/1 VIEW CHEST [RAD] Stat Exams 07/22/16 08:48 Ordered AMYLASE [CHEM] Stat Lab 07/22/16 09:00 Results CBC WITH ELECTRONIC DIFF [HEME] Stat Lab 07/22/16 09:00 Completed COMPREHENSIVE METABOLIC PANEL [CHEM] Stat Lab 07/22/16 09:00 Results LIPASE [CHEM] Stat Lab 07/22/16 09:[address] W/POSS RFLX CULT [URINALYSIS] Stat Lab 07/22/16 08:47 Uncollected Result Diagrams: 07/22/16 09:00 07/22/16 09:00 Departure - Departure Time of Disposition Decision: 11:22 DIAGNOSIS: Hypokalemia Vomiting Qualifiers: Vomiting type: unspecified Vomiting Intractability: non-intractable Nausea presence: with nausea Qualified Code(s): R11.2 - Nausea with vomiting, unspecified Disposition: ADMITTED INPATIENT 09 Certified Medical Emergency: Emergent Condition: Stable Referrals and Follow-Ups: Radha Mcknight MD [Primary Care Provider] - - Critical Care Note This patient required my direct personal management.: No This chart was documented by the indicated scribe, (Sonja Mcginnis) and accurately reflects the services I performed and decisions made by me, Edgar Baird MD, as attested by the provider's signature.
[2016-07-22 11:40] LABS: URINE CULTURE PL NEEDED? NO
[2016-07-22] MEDS ORDERED: NS 1,000 ML ONE (11:42)
--- NOTE | 2016-07-22 11:46 | Diag Imaging Result Document ---
PROCEDURE NAME: FLAT/UPRIGHT ABD/1 VIEW CHEST - 07/22/2016 SUPINE UPRIGHT ABDOMEN AND ONE-VIEW CHEST: FINDINGS: There are multiple metallic skin jackie over the lower pelvis. There is no other opaque foreign body identified. There is a moderate amount of retained fecal debris in the colon and rectum suggesting constipation. The bowel gas pattern appears nonspecific. There is gas visible in mostly nondistended small bowel and colon. There is no substantial gaseous small bowel distention identified. There is no discrete free air identified. Upright chest is compared with 06/28/2016 and shows normal heart size. The lungs appear clear. There is no pleural effusion or pneumothorax seen. IMPRESSION: 1. Nonspecific bowel gas pattern. Apparent constipation. 2. No evidence of acute cardiopulmonary disease.
[2016-07-22 11:59] LABS: BILIRUBIN URINE NEGATIVE (NEGATIVE); BLOOD URINE NEGATIVE (NEGATIVE); CLARITY CLEAR (CLEAR); COLOR YELLOW; GLUCOSE URINE NEGATIVE (NEGATIVE); LEUKOCYTES URINE NEGATIVE (NEGATIVE); NITRITE URINE NEGATIVE (NEGATIVE); PROTEIN URINE NEGATIVE (NEGATIVE); UROBILINOGEN URINE NORMAL
[2016-07-22 12:00] LABS: URINE EPITHELIAL CELLS <10 /HPF (<10); URINE SOURCE CLEAN CATCH; URINE WBC <10 /HPF (<10)
[2016-07-22] MEDS ORDERED: PHENERGAN IV PRN ×2 (12:56→18:38)
[2016-07-22] MEDS ORDERED: SODIUM CHLORIDE 0.9% INJ PRN ×2 (12:56→18:38)
[2016-07-22] MEDS ORDERED: ZOFRAN IV PRN ×2 (12:57→18:38)
[2016-07-22] MEDS ORDERED: APRESOLINE IV PRN (12:59)
[2016-07-22] MEDS ORDERED: AMBIEN PO PRN (13:01)
[2016-07-22] MEDS: MORPHINE IV PRN ×4 (13:32→23:36)
[2016-07-22] MEDS ORDERED: D5 LR IV SCH (14:00)
[2016-07-22] MEDS ORDERED: POTASSIUM CHLORIDE IV SCH (14:00)
[2016-07-22] MEDS ORDERED: LABETALOL IV ONE (17:13)
[2016-07-22] MEDS ORDERED: D5 LR + KCL 20 MEQ 1,000 ML IV SCH (18:35)
[2016-07-22] MEDS: AMBIEN PO PRN (23:33)
[2016-07-22] MEDS: APRESOLINE IV PRN (23:36)
[2016-07-23] MEDS: PHENERGAN PO PRN ×3 (04:26→21:39)
[2016-07-23] MEDS: MORPHINE IV PRN ×2 (04:27→21:44)
[2016-07-23 08:16] LABS: HEMOGLOBIN 10.5 g/dL (12.0-16.0); MCHC 31.7 g/dL (33-37); MCV 69.3 FL (81-99); MPV 9.5 FL (7.4-10.4); RBC 4.73 XMIL (4.2-5.4)
[2016-07-23] MEDS: POTASSIUM CHLORIDE IV SCH ×2 (08:28→16:09)
[2016-07-23] MEDS: D5 LR IV SCH ×2 (08:28→16:09)
[2016-07-23] MEDS: APRESOLINE IV PRN (08:34)
[2016-07-23 08:35] LABS: ALBUMIN 4.3 g/dL (3.5-5.0); CALCIUM 10.4 mg/dL (8.8-10.2); POTASSIUM 3.1 mmol/L (3.5-5.1); TOTAL BILIRUBIN 0.3 mg/dL (0.20-1.00); TOTAL PROTEIN 8.8 g/dL (6.3-8.3)
--- NOTE | 2016-07-23 09:21 | HISTORY AND PHYSICAL ---
HISTORY OF PRESENT ILLNESS: The patient is a 46-year-old, G2, P2, who is postop day #5 status post total abdominal hysterectomy and bilateral salpingo-oophorectomy. The patient presented to the emergency room complaining of nausea, vomiting, and diarrhea since time of discharge. PAST MEDICAL HISTORY: Hypertension. PAST SURGICAL HISTORY: Bilateral tubal ligation. OB HISTORY: Spontaneous vaginal delivery x2. MANAGER [employer] HISTORY: Status post total abdominal hysterectomy and bilateral salpingo-oophorectomy for uterine fibroids. SOCIAL HISTORY: Positive tobacco use. PHYSICAL EXAMINATION: VITAL SIGNS: On arrival patient afebrile. Blood pressure elevated. Otherwise vital signs stable. GENERAL: The patient appears uncomfortable. LUNGS: Respirations nonlabored. ABDOMEN: Soft, nontender, nondistended. Incision clean, dry, and intact. EXTREMITIES: Nontender. DIAGNOSTIC STUDIES: Abdominal film with no evidence of bowel obstruction. White blood cell count 15. Potassium 3.0, creatinine 1.4. Otherwise labs within normal limits. ASSESSMENT AND PLAN: This is a 46-year-old, G2, P2, 5 days status post ASHLEY/BSO, now with nausea, vomiting, and diarrhea. Will admit for IV fluid hydration and potassium replacement. cc: Jami Keita MD
[2016-07-23] MEDS ORDERED: LEVAQUIN 750 MG/D5W 750 MG/150 ML IVPB IV SCH (11:45)
[2016-07-23] MEDS ORDERED: ZOSYN 3.375 GM/NS 50 ML IV SCH (11:45)
[2016-07-23] MEDS: SODIUM CHLORIDE 0.9% INJ SCH (12:06)
[2016-07-23] MEDS: PROTONIX IV SCH (12:07)
[2016-07-23] MEDS: TOPROL XL PO SCH (12:07)
--- NOTE | 2016-07-23 13:24 | Diag Imaging Result Document ---
PROCEDURE NAME: CHEST-2 VIEWS - 07/23/2016 FRONTAL AND LATERAL CHEST, 2 VIEWS: FINDINGS: Compared to 07/22/2016. The lungs are well expanded. The heart is not enlarged. The vessels are not distended. No pneumonia. No pleural effusions. IMPRESSION: No acute abnormality.
[2016-07-23] MEDS: NORVASC PO SCH (13:47)
[2016-07-23] MEDS: KLOR-CON PO SCH ×2 (13:47→21:39)
[2016-07-23] MEDS: AMBIEN PO PRN (21:39)
[2016-07-24] VITALS: BP 173/93
[2016-07-24] MEDS: D5 LR IV SCH ×3 (01:19→10:30)
[2016-07-24] MEDS: POTASSIUM CHLORIDE IV SCH ×3 (01:19→10:30)
[2016-07-24] MEDS: AMBIEN PO PRN (01:31)
[2016-07-24 06:58] LABS: INR 0.98 (0.86-1.15); PROTIME 13.3 Seconds (12.1-15.5)
[2016-07-24 07:01] LABS: BASO% 0.2 % (0.0-0.8); EOS# 0.07 X1000 (0.0-0.7); EOS% 0.4 % (0.0-10.0); HEMATOCRIT 33.2 % (37.0-47.0); HEMOGLOBIN 10.4 g/dL (12.0-16.0); IMM GRAN# 0.14 X1000 (0.0-0.04); IMM GRAN% 0.8 % (0.0-0.5); LYMPH# 1.92 X1000 (1.2-3.4); LYMPH% 11.3 % (20.5-51.1); MCH 21.8 PG (27-31); MCHC 31.3 g/dL (33-37); MCV 69.6 FL (81-99); MONO# 1.19 X1000 (0.11-0.59); NEUT% 80.3 % (42.2-75.2); PLT 367 X1000 (130-400); RBC 4.77 XMIL (4.2-5.4)
[2016-07-24 07:02] LABS: PTT PL 19.7 Seconds (22.6-43.9)
[2016-07-24 07:06] LABS: CALCIUM 9.7 mg/dL (8.8-10.2); POTASSIUM 3.9 mmol/L (3.5-5.1)
[2016-07-24] MEDS ORDERED: NS 500 ML ONE (07:24)
--- NOTE | 2016-07-24 08:31 | CONSULTATION ---
DATE OF CONSULTATION: 07/23/2016 INCOMPLETE REPORT-DICTATION BEGINS HERE REASON FOR MEDICAL CONSULTATION: Uncontrolled hypertension. HISTORY OF PRESENTING ILLNESS: This is a 46-year-old, female who was in the hospital approximately 5 days ago for a total abdominal hysterectomy. She presented to the ER on 07/22/2016 with complaints of nausea, vomiting and diarrhea that had been present since she arrived home at her discharge on 07/19/2016. She was admitted initially to the [facility] unit, but it is noted when she came into the emergency room her blood pressure was 167/115. She was given labetalol 40 mg IV x1 yesterday afternoon and placed on hydralazine 10 mg IV q.6 hours p.r.n. It now appears that she is a little more controlled with a blood pressure at 11 o' clock today and 123/86/ unsure of why, but her home antihypertensive of Norvasc was held initially. So, we will follow her throughout the remainder of her hospitalization to ensure that we get her blood pressure under control. Of note, it is noted when she was admitted as she had a white blood cell count yesterday of 15.40. Today it has gone up to 23. Attending, Dr. Cisneros spoke with DIRECTOR OF PARTNERSHIPS Dr. Michaud about this, and they discussed the possibility of doing a CT of the abdomen and pelvis, but at this time since she is so close to being out of surgery we will monitor WBC. Assessment: 1. HTN 2. Leukocytosis 3. S/P abd. hysterectomy Plan: Restart home medications of Norvasc daily, Recheck WBC and monitor. Thank you for this consult and we will follow throughout remainder of hospitalization. Dictated by MARLENY Jarvis for Preet Cisneros MD cc: MARLENY Jarvis MD [facility]
[2016-07-24 09:00] LABS: LYMPHS 13 % (21-51); MANUAL DIFF NEEDED? YES; MONO 3 % (1-9)
--- NOTE | 2016-07-24 10:11 | Diag Imaging Result Document ---
PROCEDURE NAME: CHEST-PORTABLE - 07/24/2016 PORTABLE CHEST: COMPARISON: Compared to 07/23/2016 FINDINGS: Interval placement of a right-sided PICC line. The tip overlies the right atrium. No pneumothorax. The lungs remain clear. No cardiomegaly. No pleural effusions. IMPRESSION: Right-sided PICC line in good position.
[2016-07-24] MEDS: KLOR-CON PO SCH (10:26)
[2016-07-24] MEDS: NORVASC PO SCH (10:26)
[2016-07-24] MEDS: TOPROL XL PO SCH (10:26)
[2016-07-24] MEDS: PROTONIX IV SCH (12:30)
[2016-07-24] MEDS: SODIUM CHLORIDE 0.9% INJ SCH (12:30)
[2016-07-24 13:09] LABS: UR AMPHETAMINES QUAL NONE DETECTED (NONE DETECT); UR BARBITUATES QUAL NONE DETECTED (NONE DETECT); UR BENZODIAZEPIN QUAL PRESUMPTIVE POSITIVE (NONE DETECT); UR COCAINE QUAL NONE DETECTED (NONE DETECT); UR MDMA QUAL NONE DETECTED (NONE DETECT); UR METHADONE QUAL NONE DETECTED (NONE DETECT); UR METHAMPHETAMINE QUAL PRESUMPTIVE POSITIVE (NONE DETECT); UR OPIATES QUAL PRESUMPTIVE POSITIVE (NONE DETECT); UR OXYCODONE QUAL NONE DETECTED (NONE DETECT)
[2016-07-24 13:10] LABS: UR CANNABINOIDS QUAL PRESUMPTIVE POSITIVE (NONE DETECT); UR PCP QUAL PRESUMPTIVE POSITIVE (NONE DETECT); UR TCA QUAL NONE DETECTED (NONE DETECT)
--- NOTE | 2016-07-24 23:15 | DISCHARGE SUMMARY ---
ADMISSION DATE: 07/22/2016 DISCHARGE DATE: 07/24/2016 ADMISSION DIAGNOSIS: Status post hysterectomy with nausea, vomiting, and hypokalemia. DISCHARGE DIAGNOSIS: Vomiting, hypokalemia, resolved. SECONDARY DIAGNOSES: Hypertension and renal failure. INSTRUCTIONS: She is to follow up with me, Dr. Middleton, to remove her jackie this week, but she is also to make an appointment with her primary care provider to continue to monitor her hypertension and her renal failure. CONDITION: Stable. DIET: As tolerated. ACTIVITY: Routine postoperative instructions. MEDICATIONS: She is to resume her previous medications, and add another blood pressure medicine. HOSPITAL COURSE: Please refer to history and physical and all consults and radiology notes and labs. She was admitted with the above diagnoses. She had a soft abdomen. Did not appear to be any surgical complications. She was noted to have an increased white count. Her nausea and vomiting was treated. Her hypokalemia was treated. Currently, she is doing well, without complaints. Tolerating p.o., desiring discharge. PHYSICAL EXAMINATION: Vital Signs: Stable. Blood pressure of 173/93, pulse 102, temperature 99.2 degrees. General: She is alert and cooperative. Does not appear to be in any distress. Neck: Supple. Lungs: Clear. Heart: Regular sinus rhythm. Abdomen: Soft. Incision is dry and intact. Extremities: No cyanosis, clubbing, or edema in her extremities. DISPOSITION: We will discharge with the above instructions. cc: Austin Middleton MD
--- NOTE | 2016-07-25 13:21 | PROGRESS NOTE ---
DATE: 07/24/2016 DATE OF ADMISSION: 07/22/2016. TODAY'S DATE: 07/24/2016. SUBJECTIVE: The patient states she feels better today. She has had no further vomiting. She had a little nausea, but it did subside spontaneously. OBJECTIVE: Vital Signs: Blood pressure is 173/93, with a heart rate of 102, respirations are 18, temperature is 99 degrees oral, with room air saturations 100%. Repeat blood pressure of 121/84 with a heart rate of 94, respirations are 20, temperature is 98.8 degrees oral with a room air saturation of 100. Cardiovascular: Regular rate and rhythm. S1 and S2 are appreciated. Pulmonary: Breath sounds clear with no increased work of breathing noted. Gastrointestinal: Abdomen is soft, nontender, nondistended with bowel sounds in all 4 quadrants. Does have jackie to the lower abdomen intact with incision clean and no drainage. Extremities: No clubbing, cyanosis, or edema. Calves are nontender and pulses are palpable x4. LABS: CBC: WBC is 16.9 with a hemoglobin of 10.4, hematocrit 33.2, and platelets of 367,000. Chem: Sodium 132, potassium 3.9, BUN 13, creatinine 1.9, with a glucose of 134. ASSESSMENT AND PLAN: 1. Hypertension. We will continue with her current regimen. Blood pressures have been erratic throughout the hospitalization. We will encourage her to follow up with MARLENY Beard, her primary care provider within 1-2 weeks of discharge for medication hypertension management. 2. Intractable nausea and vomiting. I did speak with the patient once again about marijuana use. We did discuss once again hyperemesis cannabinoid syndrome. And once again, symptoms were relieved with hot showers. We did discuss that this would be a consistent recurrence following use and it would be in her best interest to cease all marijuana use in the future. She did voice understanding, stating that this was discussed with her per myself with previous admissions as well as at Dr. Mcknight's office. 3. Acute kidney injury. This is most likely secondary to dehydration. We will continue IV hydration and trend labs. 4. Leukocytosis. Her urine culture was negative. Blood cultures are pending. We will continue with her antibiotic coverage. Dictated by MARLENY Lo for Preet Cisneros MD cc: MARLENY Lo MD pt examined, agree with above, needs followup for renal function and bp monitoring [facility]TDD
== END 2016-07-24 14:36 | disposition home or self-care (01) ==
LOC: P.ED 08:32 → P.WC 08:32 → P.MEDSURG 18:14
PROVIDERS: ATTEND Obstetrics & Gynecology